=== PATIENT | male | born 1940 | race Caucasian/White ===

== ENCOUNTER 2016-12-31 18:00 | Inpatient (IN) | payer MEDICARE ==
[~2016-12-31] VITALS: Ht 180.3 cm; Wt 75.5 kg
--- OUTSIDE RECORDS SUMMARY | 2016-12-31 18:23 | XMS REPORT | Continuity of Care Document ---
Author Author [facility] Organization [facility] Address Unknown Phone Unavailable Allergies Medications Problems Procedures Results Encounters ACCT No. Visit Date/Time Discharge Status Pt. Type Provider Facility Loc./Unit Complaint [id number] 12/31/2016 10:15:00 ACT Outpatient KIKO LAWRENCE [facility]
[2016-12-31] MEDS ORDERED: TEMAZEPAM 15 MG CAPSULE PO PRN (18:30)
[2016-12-31] MEDS ORDERED: HALOPERIDOL 0.5 MG TABLET PO PRN (18:30)
[2016-12-31] MEDS ORDERED: LORAZEPAM 2 MG/ML INJECTION IM PRN (18:30)
[2016-12-31] MEDS ORDERED: LORAZEPAM 0.5 MG TABLET PO PRN (18:30)
[2016-12-31] MEDS ORDERED: PRN ORDERS MC (18:30)
[2016-12-31] MEDS ORDERED: HALOPERIDOL 5 MG/ML INJECTION IM PRN (18:30)
[2016-12-31] MEDS ORDERED: TEMA15CA PO (18:49)
[2016-12-31] MEDS ORDERED: FAMO20TA8 PO (18:49)
[2016-12-31 18:51] VITALS: BP 129/74; PULSE 102; RESP 24; TEMP 97.6; O2SAT 97
--- NOTE | 2016-12-31 19:19 | NUR ---
ETOH/Tobacco Use Patient's son reports no alcohol or tobacco use since the 1970s
[2016-12-31 19:23] VITALS: Ht 180.3 cm; Wt 75.5 kg
[2016-12-31] MEDS ORDERED: CLON0.5T23 PO (19:25)
[2016-12-31] MEDS ORDERED: MULT-933 PO (19:25)
--- NOTE | 2016-12-31 19:26 | NUR ---
Admission/Family Contacts Patient's son, Adonay, and , Sana are present during admission (1800 via [facility]. ambulance); report that patient had been "on a level plane" at home with his dementia then "fell off a guerda" which precipitated them taking him to the hospital [place]. Family stated patient had been very violent at the hospital hitting staff and had "started getting that way" at home but just mostly restless, agitated and forgetful. Patient is fatigued, reaching at unseen objects in the air, taking off his hospital gown, taking off blankets and pushing away staff during "hands-on" cares. He does not open his eyes or respond to staff - family states he is very [place]. Admission paperwork completed with family and questions answered
[2016-12-31] MEDS ORDERED: NAPR220C11 PO (19:27)
[2016-12-31] MEDS ORDERED: GLUC-251 (19:27)
--- NOTE | 2016-12-31 19:45 | NUR ---
Code Status According to pt is a DNR states it is in with the living will paperwork. No separate DNR paperwork on chart.
[2016-12-31] MEDS ORDERED: MEMA1CAP6 (19:55)
[2016-12-31 20:00] VITALS: PULSE 78
[2016-12-31] MEDS ORDERED: NAPROXEN 220 MG TABLET PO PRN (20:30)
[2016-12-31] MEDS ORDERED: MEMANTINE 10 MG TABLET PO SCH (21:00)
[2016-12-31] MEDS ORDERED: DONEPEZIL 10 MG TABLET PO SCH (21:00)
[2016-12-31] MEDS: CLONAZEPAM 0.5 MG TABLET PO SCH (21:07)
--- NOTE | 2016-12-31 21:07 | NUR ---
prn given Pt awake, labile, alert and oriented to person, pt very restless swinging and attempting to hit staff, pt attempting to crawl out of bed, pt sitting up in bed, grapping a hold of bed rails tightly. Pt repositioned in bed, pt given hs meds and Haldol 2mg crushed in jelly. Pt is in bed with staff at bedside, will monitor pt.
[2016-12-31 21:22] VITALS: BP 102/76; PULSE 89; RESP 18; TEMP 98.2; O2SAT 96
[2016-12-31] MEDS: LORAZEPAM 0.5 MG TABLET PO PRN (22:06)
--- NOTE | 2016-12-31 22:06 | NUR ---
prn given Pt remains very restless, pt agitated with cares, pt did void in urinal cloudy yellow urine, pt also incontinent, pt changed, pt very resistive to cares, pt ripped apart brief and tore up his gown. Pt swinging at staff, pt attempting to strike at staff with arms and legs. Pt states I want to stand and go pee on the wall. Pt resistive to staff's help, pt given Ativan 1mg po crushed in jelly. Pt is currently in bed remains restless with 2 bed rails up and bed alarm on. Staff remains at bedside, will monitor pt.
[2016-12-31] MEDS ORDERED: LORAZEPAM 1 MG TABLET PO ONE (23:15)
[2016-12-31] MEDS ORDERED: HALOPERIDOL 1 MG TABLET PO ONE (23:15)
--- NOTE | 2016-12-31 23:19 | NUR ---
prn given Pt more restless, attempting to throw himself out of bed, pt swinging, hitting at staff, pt spitting water at staff. Pt attempted to use the urinal, pt voided 30cc of yellow cloudy urine. Pt verbally aggressive with staff telling staff to get out he doesn't want a man in here. Pt remains very restless, pt having hallucination reaching out for objects that are not there. Dr Spaulding called and updated order to repeat Ativan 1mg and Haldol 2mg po if able to may given Ativan/Haldol per IM. Pt did take ativan/haldol crushed in jelly. Pt remains restless and staff remains at bedside for safety.
[2017-01-01] MEDS ORDERED: HALOPERIDOL 0.5 MG TABLET PO PRN (00:30)
[2017-01-01] MEDS ORDERED: HALOPERIDOL 5 MG/ML INJECTION IM PRN (00:30)
--- NOTE | 2017-01-01 00:45 | NUR ---
prn update Pt remains restless at times, pt starting to fall asleep, pt is in bed with staff at bedside with 2 bed rails up and bed alarm on.
--- NOTE | 2017-01-01 02:25 | NUR ---
Chart Check 24 hour chart check completed
--- NOTE | 2017-01-01 06:38 | NUR ---
shift summary Pt slept 8.25 hours on folding machine setter, pt is alert and oriented x1, pt is up with assist x2, pt has been uncooperative, pt is restless, staff at bedside for extra care, pt very restless in the bed, pt swinging and kicking and spitting at staff. Pt received Ativan 1mg at 2206, Haldol 2mg po 21:07, pt still very restless, attempting to crawl out of bed, pt swinging and kicking at staff, Dr Spaulding called updated ordered Ativan 1mg and Haldol 2mg po to be repeated, given crushed at 23:19. Pt restless, pt fell asleep at 0030, staff at bedside for safety. Pt having hallucinations picking and pulling at stuff in the air, pt is in bed with 2 bed rails up and bed alarm on.
--- NOTE | 2017-01-01 07:12 | NUR ---
patient status Pt awake, incontinent, pt threatening staff stating that he will charge them $10,000 and teri staff, pt grabbing and hitting staff, patient got ahold of chief science officer staff and dug his fingernails into pt left arm, no skin breakage, chief science officer washed her arm with hipacleanse offered chief science officer to go to er chief science officer refused at this time. Pt remains very restless in bed, staff at bedside for extra cares, pt making racial slurs called staff a black bitch. pt is in bed with 2 bed rails up and bed alarm on.
[2017-01-01 07:53] VITALS: PULSE 97; RESP 16; O2SAT 97
[2017-01-01] MEDS ORDERED: MEMANTINE 5 MG TABLET PO SCH (09:00)
[2017-01-01 09:40] VITALS: BP 126/74; PULSE 85; RESP 16; TEMP 97.4; O2SAT 96
[2017-01-01] MEDS: FAMOTIDINE 20 MG TABLET PO SCH (10:09)
[2017-01-01] MEDS: MULTIVITAMIN PLAIN TABLET PO SCH (10:10)
--- NOTE | 2017-01-01 10:14 | HPPDOC ---
NEREIDA MAGAÑA [employer] WIP[employer] REPAIRER 01/01/17 0919: HPI - Adult Date DATE: 01/01/17 TIME: 09:19 General Chief Complaint: aggression History of Present Illness Duy is a 75 year old male who was admitted at the [facility] since 12/29 for some acute aggression he was experiencing, was hitting, kicking, spitting at . He was ultimately sent to [facility] unit for some more intensive akhil-psych hospitalized care. Notes were reviewed from [facility] and it appears he was found to be in rate controlled afib on . They had evaluated anticoagulation needs and decided patient was not a good candidate. Recommended outpatient echo. Troponin done at [facility] was negative. TSH from 12/29 was 0.890. UA done at [facility] did not show acute evidence for infection. Patient is not on any cardiac medications at time of this initial [facility] hospitalist evaluation. Remaining medial history is difficult to fully obtain as patient is not able to report history due to clinical condition. He is able to deny feeling any pain. His speech is soft and difficult to fully understand, he mumbles. Past Medical History Past Medical History Patient's Medical History: (1) New onset atrial fibrillation (2) Dementia Surgical History Patient's Surgical History: cataract excision Current Medications Home Meds Reported Medications Memantine HCl/Donepezil HCl (Namzaric Titration Pack) 1 Each Cap24.dspk 12/31/16 Naproxen Sodium (Aleve) 220 Mg Capsule, 220 MG PO BIDWM Y for PRN ORDERS, CAP 12/31/16 Glucosamine/D3/Boswellia Alisson (Osteo Bi-Flex Tablet) 1 Each Tablet 12/31/16 Multivitamin (Multi-Day Vitamins) 1 Each Tablet, 1 TAB PO DAILY, #30 TAB 12/31/16 Clonazepam (Clonazepam) 0.5 Mg Tab.rapdis, 1 TAB PO HS, TAB 12/31/16 Temazepam (Temazepam) 15 Mg Capsule, 15 MG PO HS, CAP Take 1 capsule, by mouth, 1 time a day (at BEDTIME). 12/31/16 Famotidine (Famotidine) 20 Mg Tablet, 1 TAB PO DAILY, TAB 12/31/16 Allergies: Coded Allergies: No Known Allergies (Unverified , 12/31/16) Family History Family History: unable to obtain Social History Marital Status: Advance Directives: Yes DPOA for Healthcare Only Social History Comments unable to obtain SH fully secondary to dementia Review of Systems Unable to Obtain ROS Due to: dementia Psychiatric Psychiatric: emotional instability, irritability, memory impairment All Other Systems All Other Systems: Reviewed (remainder of 10-point ROS Neg.) Physical Exam General General Nourishment: well nourished, well developed Vital Signs Vital Signs Date Time Temp Pulse Resp B/P Pulse Ox O2 Delivery O2 Flow Rate FiO2 12/31/16 21:22 98.2 89 18 102/76 96 Room Air Height (Feet): 5 Height (Inches): 11.00 Eyes Brief: FOUND: PERRL, NOT FOUND: scleral icterus ENMT Brief: FOUND: hearing intact, mucosa moist Neck Brief: FOUND: midline Respiratory Brief: FOUND: clear all cowan, equal bilaterally Cardiovascular (brief) Cardiac Brief: NOT FOUND: peripheral edema Comments irreg irreg c/w atrial fibrillation. Rate 80s. Abdomen (brief) Abdominal Brief: FOUND: BS normo active x4, soft Integumentary (brief) Integumentary Brief: FOUND: dry, pink, warm Neurologic (brief) Comments unable to assess secondary to mental status Neurologic RN Documented GCS Eye Opening: Verbal: Motor: Total: Psychiatric (brief) FOUND: alert, NOT FOUND: normal affect (confused), oriented Laboratory Laboratory Tests Test 01/01/17 08:54 Sepsis Diagnostic Criteria Sepsis Confirmed/Suspected Infection: No Assessment & Plan Problems: (1) Behavior disturbance Status: Acute (2) Dementia (3) New onset atrial fibrillation Status: Acute Plan/Intensity of Service 01/01 New onset afib-Chads score = 1 based on history obtained in documents sent from [facility]. Hold on anticoagulation at this time. Can do echo as outpatient. Rate controlled. Dr. Carmona advised. Lipid panel and Hgb A1c pending from admit. Psych treatment per Dr Spaulding Code Status Full Code, unverified Hospital Course Summary Disclaimer The hospital course summary below is not to be considered part of the above Progress Note. LUDIN CARMONA MD 01/01/17 7513: Past Medical History Current Medications Home Meds Reported Medications Memantine HCl/Donepezil HCl (Namzaric Titration Pack) 1 Each Cap24.dspk 12/31/16 Naproxen Sodium (Aleve) 220 Mg Capsule, 220 MG PO BIDWM Y for PRN ORDERS, CAP 12/31/16 Glucosamine/D3/Boswellia Alisson (Osteo Bi-Flex Tablet) 1 Each Tablet 12/31/16 Multivitamin (Multi-Day Vitamins) 1 Each Tablet, 1 TAB PO DAILY, #30 TAB 12/31/16 Clonazepam (Clonazepam) 0.5 Mg Tab.rapdis, 1 TAB PO HS, TAB 12/31/16 Temazepam (Temazepam) 15 Mg Capsule, 15 MG PO HS, CAP Take 1 capsule, by mouth, 1 time a day (at BEDTIME). 12/31/16 Famotidine (Famotidine) 20 Mg Tablet, 1 TAB PO DAILY, TAB 12/31/16 Allergies: Coded Allergies: No Known Allergies (Unverified , 12/31/16) Assessment & Plan Assessment I have independently evaluated and examined this patient. I reviewed the chart, the patient's history, and the [employer] WIP[employer] REPAIRER's documented findings as above. We discussed and formulated the assessment and plan as above with additions as below: Patient sleeping when I visited him, he opened his eyes briefly but did not remain awake. No additional history could be obtained. Respirations were nonlabored in cardiac exam slightly irregular with borderline tachycardia. The patient withdrew all 4 extremities to stimulation and facial structures were grossly symmetric. EKG reviewed by myself demonstrating atrial fibrillation with moderate ventricular response, diffuse T-wave flattening and relatively low voltage. No evidence of acute pathology; cannot exclude past septal AR. Will review transfer records in more detail in upcoming days and hopefully get supplemental history from patient's when she is available. Will attempt a more complete neurological evaluation when patient awake and able to cooperate with testing. NEREIDA MAGAÑA APRN Jan 01, 2017 09:19 LUDIN CARMONA MD Jan 01, 2017 19:06
--- NOTE | 2017-01-01 15:37 | NUR ---
CM JUAQUIN VISITED SPOKE WITH PT SPOUSE CON. CM EXPLAINED ROLE AND PROVIDED CONTACT INFORMATION. SPOUSE STATES THAT PT WILL NOT RETURN HOME AND SHE DID PROVIDE PT WITH FACILITIES TO CONTACT WHEN APPROPRIATE. CON IS AWARE TO CONTACT CM IF NEEDS ARISE.
[2017-01-01] MEDS ORDERED: OLANZAPINE 2.5 MG TABLET PO ONE (16:00)
--- NOTE | 2017-01-01 18:19 | NUR ---
SHIFT SUMMARY Patient has been compliant with his medications today. He slept 1.5 hr this shift. No complains of pain, Heart rate was irregular, Order received by LOVELY erwin for an EKG, hearth rhythm was Afib, LOVELY Velasco was aware. Pt needed assistance of 1 with cares, he was able to brush his teeth by himself. He needed cueing, Unsteady gait, he leans forward at times when he ambulates. During ambulation gait belt was used. In the morning patient came out for breakfast and and lunch, he is able to feed himself. Then wondered around the unit with staff next to him, he was restless, agitated and anxious, did not like having the gait belt on. In the evening he got out of bed and began to walk down the [place] way with staff, he was having visual hallucinations, picking things that were not there from the floor. Throwing something away. Removing something from his hands. Pt also would assist him self to the floor several times in the [address] way, gait belt was on. Staff provided constant visual observation while he was out of his room throughout the day per unit policy. One time order was received for zyprexa 2.5 mg PO and it was given at 1600, around 45 minutes later he was more calmed and able to redirect. Family was updated on Pt status. Pt is currently resting on his room, bed alarm is on, bedside rails are up x 2, bed is at its lowest position. Will continue to monitor for any needs or concerns. t
--- NOTE | 2017-01-01 19:45 | NUR ---
Pt OOB without assistance, bed alarms notified staff of bed exit. Pt attempting to poultry picker things off of the floor that are not there. Pt is noted to be having visual hallucinations and picking at bed sheets, attempting to pull off what he sees. Pt is unable to describe what he is seeing and it is difficult to understand his verbalizations. Attempted to re-direct patient with verbal cues, unsuccessfully. Pt is dressed, toileted and taken to day room where staff gives patient a snack and his HS pills early due to increasing agitation. Pt stays in day room for approximately 20 minutes before wanting to go back to his room. Pt assisted back to room with SBA x1 and gait belt. Upon getting to his room, pt becomes agitated and begins to push at female staff to move them away from him. Pt not able to be redirected at this time. Pt refuses toileting. Pt taken back to day room with SBA x1 and gait belt. Pt placed in recliner and snack given with assistance from STOCK BUYER. Pt able to be directed by male staff in day room and stays seated in the recliner. After 35 minutes, pt requests to go back to room. Attempted to toilet prior to being placed in bed. Pt ambulated to shower and is attempting to poultry picker something from the floor, nothing was on the floor at that time. Pt redirected to bed, shoes removed and placed into the closet. Pt given blankets and bed alarms set. Approximately 20 minutes later, a bed bath was completed by STOCK BUYER and patient compliant with cares.
[2017-01-01] MEDS: CLONAZEPAM 0.5 MG TABLET PO SCH (19:51)
[2017-01-01] MEDS: MEMANTINE PO SCH (19:52)
[2017-01-01] MEDS: DONEPEZIL PO SCH (19:52)
--- NOTE | 2017-01-01 20:49 | GENHPPDOC ---
[facility] 01/01/17 Start Time: 15:50 Stop Time: 16:40 >50% of this visit spent in counseling/coordination care. Chief Complaint: Patient unable to verbalize a chief complaint Increased behavioral disturbance, agitation per family History of Present Illness Patient is a 76-year-old , retired male who was admitted to [facility] on 12/31/16 due to increasing agitation/aggression. Patient lives at home with his . He has a history of dementia. Prior to admission, he wandered away from the home at night and was found in a ditch. His family feels they are unable to care for him at home. They reported that he has been having visual hallucinations and increased aggression with his . He has had multiple falls over the past 1-2 weeks. He has poor hygiene and has not been eating well, with 7 lb. weight loss since 08/2016. His family reports initial and middle insomnia. He has had a limited response to Seroquel. Past medical problems: chronic gait instability with recent falls, recent-onset atrial fibrillation (rate-controlled) Patients DPOA is his , Sana Hernandez, . EKG upon admission 01/01/17: 87 bpm, atrial fibrillation, QTc 420ms Psychosis: visual Dementia: memory impairment, poor executive function. Past Medical History Unable to Obtain Due to: Dementia Past Medical History Patient's Medical History: (1) New onset atrial fibrillation (2) Dementia Surgical History Patient's Surgical History: cataract excision Current Medications Home Meds Reported Medications Memantine HCl/Donepezil HCl (Namzaric Titration Pack) 1 Each Cap24.dspk 12/31/16 Naproxen Sodium (Aleve) 220 Mg Capsule, 220 MG PO BIDWM Y for PRN ORDERS, CAP 12/31/16 Glucosamine/D3/Boswellia Alisson (Osteo Bi-Flex Tablet) 1 Each Tablet 12/31/16 Multivitamin (Multi-Day Vitamins) 1 Each Tablet, 1 TAB PO DAILY, #30 TAB 12/31/16 Clonazepam (Clonazepam) 0.5 Mg Tab.rapdis, 1 TAB PO HS, TAB 12/31/16 Temazepam (Temazepam) 15 Mg Capsule, 15 MG PO HS, CAP Take 1 capsule, by mouth, 1 time a day (at BEDTIME). 12/31/16 Famotidine (Famotidine) 20 Mg Tablet, 1 TAB PO DAILY, TAB 12/31/16 Allergies: Coded Allergies: No Known Allergies (Unverified , 12/31/16) Family History Family History: unable to obtain Vaccines No Social History Marital Status: Housing: house Household Members: spouse Current Occupational Status: retired Advance Directives: Yes DPOA for Healthcare Only Review of Systems Unable to Obtain ROS Due to: clinical condition, dementia Psychiatric Psychiatric: emotional instability, hallucinations, memory impairment Generations Exam Vitals Vital Signs Date Time Temp Pulse Resp B/P Pulse Ox O2 Delivery O2 Flow Rate FiO2 01/01/17 09:40 97.4 85 16 126/74 96 Room Air Physical examination performed by the hospitalist. Height (Feet): 5 Height (Inches): 11.00 Mental Status Exam Muscle Strength/Tone: Normal Dressing: Casual Grooming: Poor Attitude: Uncooperative, Combative Motor Activity: Agitation, Restless Eye Contact: Poor Volume: Soft Rhythm: Mumbled, Other (Nonsensical) Sensory: Alert Orientation: Disoriented to time, Disoriented to place, Disoriented to situation, Oriented to person Mood: Other (Unable to obtain from patient) Affect: Labile Rate of Thoughts: Delayed Thought Organization: Disorganized, Confused Associations: Illogical Abstract Reasoning: Impaired, concrete Computation: Poor Computation Thought Content: Other (Poverty of thought) Perception/Psychotic: Psychotic Current Hallucinations: Visual (reported by family) Attention Span/Concentration: Short Span Language: Naming Impaired Fund of Knowledge: Poor fund of knowledge Memory: Poor-immediate, Poor-recent, Poor-remote Suicidal Ideation: None Homicidal Ideation: Other (has threatened hospital staff with butter , no continuous well-formed HI) Insight: Impaired Judgment: Impaired Impulse Control: Poor Laboratory Tests Test 01/01/17 08:54 Hemoglobin A1c 5.4% Triglycerides Level Pending Cholesterol Level Pending LDL Cholesterol, Calculated Pending VLDL Cholesterol Pending HDL Cholesterol Direct Pending Cholesterol/HDL Ratio Pending Vitamin B12 Level Pending Folate Pending Assessment and Plan (1) Major neurocognitive disorder Assessment: with behavioral disturbance History of Alzheimer's dementia, r/o Lewy Body dementia (2) New onset atrial fibrillation Assessment: Rate-controlled, outpatient echocardiogram recommended Evaluate and stabilize. Maintain safety precautions. Review labwork, order additional as needed. Family requesting placement once stabilized. Would like to obtain head CT if patient stabilizes to the point he is able to cooperate. Will schedule Zyprexa 5mg PO q HS; monitor patient's mood, behavior and response to treatment. ARIANA DEY MD Jan 01, 2017 15:50
[2017-01-01 21:00] VITALS: BP 123/72; PULSE 100; RESP 18; TEMP 97.9; O2SAT 98
[2017-01-01] MEDS ORDERED: OLANZAPINE ZYDIS PO SCH (21:00)
--- NOTE | 2017-01-01 23:53 | NUR ---
24 hour chart check completed
--- NOTE | 2017-01-02 02:02 | NUR ---
sleeping status Pt is noted to be pulling clothing and briefs off until he is nude. Charge nurse advises that as long as he is in bed, to leave him be. Pt door partially closed for privacy.
[2017-01-02] MEDS: OLANZAPINE 2.5 MG TABLET PO PRN ×2 (02:07→15:34)
--- NOTE | 2017-01-02 02:45 | NUR ---
PRN response Pt noted to continue picking at skin, attempting to pull off a mole from skin. Does not redirect with verbal cues. Pt still not able to be understood due to his mumbling when he speaks. PRN Zyprexa was given for increasing agitation and attempting to pinch staff while they were providing cares. Pt able to take med whole with a bite of applesauce. Pt rests quietly for 2 hours after PRN med given.
--- NOTE | 2017-01-02 06:04 | NUR ---
Shift summary Pt able to rest intermittently through the night. Multiple episodes of incontinence with debbie care and skin care provided. Pt refused to keep clothes and briefs on. Complete linen change done after incontinence episode. Pt had one episode of aggression towards staff when he attempted to hit staff during debbie care. Pt given PRN that was effective and he rested quietly after PRN administration. Pt continues to have auditory and visual hallucinations, but it is unclear as to what they are due to patient speech only being mumbles. Pt also continues to pick at skin and place objects in his mouth that are not in his hands. Pt throwing linen and pillows to floor repeatedly and does not leave them on the bed, shakes bed rails in attempts to lower them but remains in the bed at this time. Addendum: 01/02/17 at 0625 by DILSHAD YOUSIF RN Pt sleeps approximately 5 hours through the shift without incident.
[2017-01-02] MEDS: MULTIVITAMIN PLAIN TABLET PO SCH (08:56)
[2017-01-02] MEDS: LORAZEPAM 0.5 MG TABLET PO PRN ×2 (08:56→22:51)
[2017-01-02] MEDS: FAMOTIDINE 20 MG TABLET PO SCH (08:56)
--- NOTE | 2017-01-02 08:56 | NUR ---
Pt Status and PRN Med Pt. given bed bath and was cooperative with care but very impulsive. Oriented only to person and needs frequent prompts while eating but able to feed self, does not utilize utensils correctly until prompted. Pt very impulsive and walked in [place] to office and back six times two assist. Wanting to leave and go home and not directable. Medicated with Ativan 1 mg po.
[2017-01-02 09:26] VITALS: BP 133/77; PULSE 103; RESP 18; TEMP 96.7; O2SAT 93
--- NOTE | 2017-01-02 10:30 | NUR ---
Slums Evaluation Pt scored 0 as he is unable to answer questions.
--- NOTE | 2017-01-02 11:45 | NUR ---
PRN response Pt sleeping in recliner and has occasional picking in the air.
--- NOTE | 2017-01-02 15:34 | NUR ---
Prn Med Pt given Zyprexa 2.5 mg po for agitation. When pt take to bathroom pt bent over and was lifting staff member's leg up and pulling at shoe. Not able to be redirected. In w/c and continued to reach down to floor and picks in air and on w/c.
[2017-01-02 16:13] VITALS: BP 129/71; PULSE 93; RESP 18; TEMP 97.8; O2SAT 96
--- NOTE | 2017-01-02 17:00 | NUR ---
PRN Med response Sleeping in chair and no respiratory difficulty noted. Will awake briefly to tactile stimuli but then back to sleep easily.
--- NOTE | 2017-01-02 18:04 | NUR ---
Shift Summary PT did cooperate with bathing but was passive and need much prompting to follow sequencing of steps but did not follow prompts. Speech mumbled and pt is confused except to name. Intermittent agitation, pacing with two assist for balance and safety and gait belt in place as pt leans forward and on occasion with stand up in balance stance. and son here today and verbalize pt needs custodial care placement at dismissal.
[2017-01-02] MEDS: CLONAZEPAM 0.5 MG TABLET PO SCH (20:21)
[2017-01-02] MEDS: MEMANTINE PO SCH (20:29)
[2017-01-02] MEDS: DONEPEZIL PO SCH (20:29)
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
[2017-01-02 22:22] VITALS: BP 113/80; PULSE 85; RESP 20; TEMP 97.8; O2SAT 98
[2017-01-02] MEDS: LORAZEPAM 2 MG/ML INJECTION IM PRN (23:07)
--- NOTE | 2017-01-02 23:13 | NUR ---
PRN: Patient has been agitated since being put to bed. Grabbing clothing and finger of nurse and not letting go. Verbal aggression as well, calling this RN a bitch. Restless and got out of bed. Falling sideways when this RN caught him. Patient would not take ativan po with jelly. He spit it out. This RN gave ativan 1 mg IM Left pectoral with assistance to have him hold still. Patient tolerated injection well and is now laying in bed with bed rails up times 2 and bed alarm on. Addendum: 01/03/17 at 1033 by LUDA CARRERA RN IM was given in the Right Deltoid.
--- NOTE | 2017-01-03 00:15 | NUR ---
PRN F/U: Patient resting after IM injection of ativan. Will continue to monitor.
[2017-01-03 00:39] LABS: LDL CHOLESTEROL,CALCULATED 76.6 (66-159); RISK FACTOR 3.3 RATIO (0-5.0); VLDL CHOLESTEROL 14.4 MG/DL (0-28)
--- NOTE | 2017-01-03 02:35 | NUR ---
Status: Patient was in dayroom when I arrived on shift. Patient was sleeping and when he was woke to take his evening medications, he grabbed my sweatshirt and would not let go. He was agitated and hollering. Patient taken to room in recliner and placed in bed. Patient put in night gown. Patient was able to rest a short time, before he started getting restless and pulling his covers off. Patient got out of bed and when I got to room, patient was up next to bed and was leaning to the right, about to fall. This RN was able to catch him. With other assistance, patient was placed back in bed and continues to be agitated. He grabbed my fingers and wouldn't let go, was well as verbal aggression, calling this RN a bitch. Patient was offered PO ativan and he refused to take it, spitting it out. Patient was given IM injection of Ativan in left arm and tolerated well. Patient resting since IM Ativan given earlier in shift. Nothing additional to note at this time. Patient in bed. Bed rails up X2 and bed alarm on.
--- NOTE | 2017-01-03 04:46 | NUR ---
Chart Check 24 hour chart check completed
--- NOTE | 2017-01-03 06:09 | NUR ---
Summary: Patient agitated throughout this shift while awake. He did receive Ativan IM for safety of himself and others. Patient got out of bed and this RN caught him right as he was falling sideways. Patient was also grabbing, hitting, and verbally abusive to staff. Patient was given Ativan 1mg IM at 2307 after refusing po ativan. Patient rested the remainder of the shift with bed rails up X2 and alarm on bed. Patient continues resting, will continue to monitor.
[2017-01-03 08:00] VITALS: BP 125/78; PULSE 90; RESP 20; TEMP 97.6; O2SAT 98
[2017-01-03] MEDS: MULTIVITAMIN PLAIN TABLET PO SCH ×2 (09:00→12:56)
[2017-01-03] MEDS: FAMOTIDINE 20 MG TABLET PO SCH ×2 (09:00→13:02)
[2017-01-03] MEDS ORDERED: RIVASTIGMINE 1.5 MG CAPSULE PO SCH (09:00)
[2017-01-03] MEDS: RIVASTIGMINE 4.6 MG/24 HR PATCH TD SCH (09:52)
--- NOTE | 2017-01-03 10:18 | NUR ---
GROOVER OPERATOR--PSH/ADVANCE DIRECTIVES [facility] made phone call to pt's , Sana Hernandez ([phone]) in order to gather information for psychosocial history (PSH). Pt's advanced dementia inhibits him from being able to answer any questions. is pt's DPOA-HC and he has a Living Will. She wants him to be a DNR and gave permission to sign her name on DNR form. Pt. was born in [place]. He has two sons (Adonay--[place]; Farzad--[place]). Pt. has high school diploma and was in the [employer]. 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 Pt. did have a problem abusing alcohol but quit drinking in 1971. He has not smoked for many years. He has never been a spiritual person. Pt. has been living at home with his in [place]. His son lives four houses away. The does not feel she can safely manage pt. at home. She is meeting this afternoon with an litigation attorney who will help her file for medicaid. She has the names of nursing homes in the area that she is interested in for placement. This SW reviewed proposed [place] plan with pt. added some information regarding his current level of functioning. She gave permission to sign her name on the form. She said her son's days off are Saturday and and she may not be able to visit until next week due to the distance. Addendum: 01/03/17 at 1045 by TONEY CHEEK Amended: Links added.
--- NOTE | 2017-01-03 10:35 | PNPDOC ---
Subjective Date DATE: 01/03/17 TIME: 10:15 Subjective Duy is seen this morning in follow up for aggressive behaviors. Staff reports that he has been aggressive toward staff all night. Having, hitting, and verbally abusive. He continues to be impulsive and attempts to get out of bed quickly and has had a near miss fall. Appears to BP has been well controlled 113/80. Objective Vital Signs Vital signs Vital Signs Date Time Temp Pulse Resp B/P Pulse Ox O2 Delivery O2 Flow Rate FiO2 01/02/17 22:22 97.8 85 20 113/80 98 Room Air Height (Feet): 5 Height (Inches): 11.00 Weight (Kilograms): 77.200 General General Appearance: Confused, Uncooperative, No Acute Distress Eyes (Brief) Eyes: FOUND: EOMI ENMT (Brief) ENMT: FOUND: mucosa moist, normal dentition, NOT FOUND: pharnyx erythema Neck (Brief) Neck: FOUND: midline, NOT FOUND: adenopathy, carotid bruits, tracheal deviation Respiratory (Brief) Respiratory: FOUND: clear all cowan, equal bilaterally, NOT FOUND: wheezes Cardiovascular (Brief) Cardiac: FOUND: regular rate, regular rhythm, NOT FOUND: murmur, pedal edema Capillary Refill: <2 sec Abdomen (Brief) Abdominal: FOUND: BS normo active x4, soft, NOT FOUND: distended, tender Lymphatic (Brief) Lymphatic: NOT FOUND: adenopathy Musculoskeletal (Brief) Musculoskeletal: NOT FOUND: tenderness Integumentary (Brief) Integumentary: FOUND: dry, pink, warm Neurologic (Brief) Neurological: FOUND: cranial 2-12 intact Psychiatric (Brief) Psychiatric: FOUND: attentive, normal affect Sepsis Diagnostic Criteria Sepsis Confirmed/Suspected Infection: No Assessment & Plan Problems: (1) Behavior disturbance Status: Acute (2) Dementia (3) New onset atrial fibrillation Status: Acute Plan/Intensity of Service 01/03/17 Dr Spaulding continues to work on behavior treatment. Goal is to keep both patient and staff safe Lipid panel reviewed, Hgb A1c on admission 5.4 Have asked nursing staff to call PCP office Dr Dolan from [place], [place] to obtain further PMH Otherwise is medically stable Code Status Full Code, unverified Hospital Course Summary Disclaimer The hospital course summary below is not to be considered part of the above Progress Note. Hospital Course Summary 01/03/17 Dr Spaulding continues to work on behavior treatment. Goal is to keep both patient and staff safe Lipid panel reviewed, Hgb A1c on admission 5.4 Have asked nursing staff to call PCP office Dr Dolan from [place], [place] to obtain further PMH Otherwise is medically stable WILLIE PIERRE APRN Jan 03, 2017 10:25
--- NOTE | 2017-01-03 14:22 | NUR ---
STATUS Pt woke up late around 1300, he was incontinent, he only took bites of his lunch, and ate an ice cream. pt did not wanted this RN to help him get dressed in the morning, he refused his morning medications, and said he wasn't taking anything until he talks to the doctor. Patient's gait is unsteady. He tries to have conversation with staff but his conversation does not make sense at times. Pt was having visual hallucinations, he was wrapping something something that was not there between his fingers. Pt is currently coloring in the dining room. Staff is near by, will continue to monitor for any needs or concerns.
[2017-01-03 16:27] VITALS: BP 122/88; PULSE 100; RESP 16; TEMP 96.9; O2SAT 98
[2017-01-03] MEDS: LORAZEPAM 0.5 MG TABLET PO PRN ×2 (17:49→21:27)
--- NOTE | 2017-01-03 18:26 | NUR ---
SHIFT SUMMARY/PRN Pt is AO x 1. Patient woke up late today around 1300, he only took bites of his lunch and had an ice cream, he ate 50 % of his dinner. Pt did well after he woke up he was trying to make conversations with other patients and staff, he sat down in the dining room and did some coloring for a while, he spoke with his son on the phone, Pt walked down the [address] way several times this shift with staff, Gait is unsteady. Patient has been having visual hallucinations, he has been wrapping unseen things around his hands, picking at the air, picking unseen things from the floor. In the evening Pt started getting restless, unable to stay sitting down, he tries to get up with out staff assistance, pacing down the [address] way,refusing to use the gait belt, exit seeking, unable to redirect. PRN Ativan 1mg po was given at 1750. Pt has been constant visual observation while he is awake and out of his room, Pt has not been physically aggressive. Pt is currently in the day room wondering around, and continues to be restless, taking his shoes off, exit seeking, unsteady. Staff is next to him. Will continue to monitor.
--- NOTE | 2017-01-03 19:17 | NUR ---
PRN follow up Pt continues to be restless, wondering around the day room, agitated, he took his shirt off, took his shoes off, he continues to pick at the air, picking up unseen things from the floor, Pt has been difficult to redirect. He is currently in the group room, PRN medication was not effective. staff is near by, will continue to monitor.
--- NOTE | 2017-01-03 20:00 | NUR ---
STATUS PT IS IN THE DAY ROOM SEATED IN A CHAIR FIDGETING WITH HIS SHOES AND SHIRT. PT TAKES HIS SHIRT OFF AND SHOES OFF IN DIFFERENT PLACES IN THE DAY ROOM. PT IS NOT EASILY REDIRECTED. PT REQUIRES 1:1 ATTENTION AT THIS TIME. PT IS UP WALKING IN HALLWAY WITH ASSISTANCE X2 PT IS UNSTABLE ON HIS FEET LEANING FORWARD AND WALKING VERY FAST. SETTLES QUICKLY IN BED AFTER PM CARES ARE GIVEN. BEDALARM IS ON. PT REFUSES PO MEDICATIONS SPITTING THEM AT THIS RN.
[2017-01-03 20:07] VITALS: BP 117/79; PULSE 98; RESP 16; TEMP 97.7; O2SAT 96
[2017-01-03] MEDS: DONEPEZIL PO SCH (20:21)
[2017-01-03] MEDS: MEMANTINE PO SCH (20:21)
[2017-01-03] MEDS: CLONAZEPAM 0.5 MG TABLET PO SCH (20:21)
--- NOTE | 2017-01-03 21:12 | GENPN ---
Generations Subjective Date DATE: 01/03/17 TIME: 15:03 Subjective/Severity of Illness Medications Current Medications Medications (Trade) Dose Ordered Sig/Gomez Start Time Stop Time Status Last Admin Dose Admin Miscellaneous Medication (May use PRN orders) 1 PRN PRN 12/31/16 18:30 Haloperidol (Haldol) 0.5 mg Q6H PRN 12/31/16 18:30 12/31/16 19:51 DC Lorazepam (Ativan) 0.5 mg Q6H PRN 12/31/16 18:30 12/31/16 19:51 DC Lorazepam (Ativan) 0.5 mg Q6H PRN 12/31/16 18:30 12/31/16 19:51 DC Haloperidol Lactate (Haldol 5 Mg/ml Inj) 0.5 mg Q6H PRN 12/31/16 18:30 12/31/16 19:51 DC Donepezil HCl (Aricept) 10 mg HS 12/31/16 21:00 01/01/17 08:57 DC 12/31/16 21:07 10 MG Famotidine (Pepcid) 20 mg DAILY 01/01/17 09:00 01/02/17 08:56 20 MG Memantine (Namenda) 10 mg HS 12/31/16 21:00 01/01/17 08:57 DC 12/31/16 21:07 10 MG Temazepam (Restoril) 15 mg HS PRN 12/31/16 18:30 01/01/17 20:50 DC Memantine (Namenda) 5 mg DAILY 01/01/17 09:00 01/01/17 09:00 DC Haloperidol (Haldol) 2 mg Q6H PRN 01/01/17 00:30 01/01/17 17:29 DC 12/31/16 21:07 2 MG Haloperidol Lactate (Haldol 5 Mg/ml Inj) 2 mg Q6H PRN 01/01/17 00:30 01/02/17 17:17 DC Lorazepam (Ativan) 1 mg Q6H PRN 01/01/17 00:30 01/02/17 22:51 1 MG Lorazepam (Ativan) 1 mg Q6H PRN 01/01/17 00:30 01/02/17 23:07 1 MG Clonazepam (Klonopin) 0.5 mg HS 12/31/16 21:00 01/02/17 20:21 0.5 MG Naproxen Sodium (ALEVE 220 mg) 220 mg BIDWM PRN 12/31/16 20:30 Multivitamins Therapeutic (Theragran) 1 tab DAILY 01/01/17 09:00 01/02/17 08:56 1 TAB Memantine (Namenda) 10 mg BID 01/20/17 21:00 Memantine (Namenda) 5 mg BID 01/20/17 21:00 Donepezil HCl (Aricept) 10 mg HS 01/20/17 21:00 01/20/17 21:00 DC Olanzapine (Zyprexa Zydis) 5 mg HS 01/01/17 21:00 01/02/17 17:17 DC 01/01/17 19:52 5 MG Olanzapine (ZYPREXA 2.5 mg) 2.5 mg Q6HR PRN 01/01/17 17:30 01/02/17 17:17 DC 01/02/17 15:34 2.5 MG Donepezil HCl (Aricept) 5 mg HS 01/20/17 21:00 Rivastigmine Tartrate (Exelon) 1.5 mg BID 01/03/17 09:00 01/03/17 09:00 DC Rivastigmine Tartrate (Exelon Patch) 4.6 mg DAILY 01/03/17 09:00 01/03/17 09:52 4.6 MG Rivastigmine Tartrate (Exelon Patch Removal) 1 removal DAILY 01/04/17 09:00 Subjective Patient seen and chart reviewed. Patient was restless overnight and given PRN Ativan on multiple occasions. Did then sleep until 1300 today. Exelon patch was started this AM as patient has been refusing PO, patient seems significantly steadier on his feet. Patient was calm at time of interview after speaking with his son on the phone. He continues to be disorganized/confused. Staff have reported that he seems to have VH (he wraps his fingers around something) but it does not appear that this is particularly disturbing for him. I spoke with son about possible medication options - family would prefer to avoid antipsychotics (reportedly responded poorly to Seroquel) and clozaril if possible. He felt that Depakote may be a good option to try next to reduce agitation. SW will continue to work with family in regards to expectations and prognosis. VSS. Patient not able to participate in SLUMS. Start Time: 15:10 Stop Time: 15:30 Care >50% of this visit spent in counseling/coordination care. Generations Exam Vitals Vital Signs Date Time Temp Pulse Resp B/P Pulse Ox O2 Delivery O2 Flow Rate FiO2 01/03/17 08:00 97.6 90 20 125/78 98 Room Air Physical examination performed by the hospitalist. Height (Feet): 5 Height (Inches): 11.00 Mental Status Exam Muscle Strength/Tone: Weak (improved from previous) Dressing: Casual Grooming: Poor Attitude: Uncooperative Motor Activity: Restless (at times) Eye Contact: Poor Speech: Slowed Volume: Soft Rhythm: Mumbled Sensory: Alert Orientation: Disoriented to time, Disoriented to place, Disoriented to situation, Oriented to person Mood: Neutral Affect: Labile Rate of Thoughts: Delayed Thought Organization: Disorganized, Confused Associations: Illogical Abstract Reasoning: Impaired, concrete Computation: Poor Computation Thought Content: Other (Out of context to situation) Perception/Psychotic: Psychotic Current Hallucinations: Visual (suspectd, not disturbing in nature from observations) Attention Span/Concentration: Inattentive Language: Naming Impaired Fund of Knowledge: Poor fund of knowledge Memory: Poor-immediate, Poor-recent, Poor-remote Suicidal Ideation: None Homicidal Ideation: None Insight: Impaired Judgment: Impaired Impulse Control: Poor Assessment and Plan (1) Major neurocognitive disorder Assessment: with behavioral disturbance History of Alzheimer's dementia, Lewy Body dementia suspected Plan: 01/02/17: Plan to cross-taper Aricept with Rivastigmine, which has been shown to be more helpful with behavioral disturbance in LBD. Will discontinue olanzapine.. Consider retrial of antipsychotic pending patient's behavior. 01/03/17: Started Exelon patch 4.2mg/24 hours in AM on 01/03, consider trial of Depakote (decided during discussion with family). (2) New onset atrial fibrillation Assessment: Rate-controlled, outpatient echocardiogram recommended Started Exelon patch 4.2mg/24 hours in AM on 01/03, consider trial of Depakote ( decided during discussion with family) though patient's agitation seems reduced today and he is more steady on his feet. Monitor patient's mood, behavior and response to treatment. ARIANA DEY MD Jan 03, 2017 15:03
--- NOTE | 2017-01-03 21:40 | NUR ---
PRN PT IS AWAKE AND ATTEMPTING TO GET OUT OF BED AT THIS TIME. HE IS CHANGED OF INCONT URINE AND REFUSES TO USE URINAL AT THIS TIME. CALL IS PLACED TO SENIOR MANUFACTURING ENGINEER NEW ORDERS ARE RECEIVED FOR PRN ATIVAN IM IT IS TO EARLY TO GIVE SCHEDULED PRN. IM INJECTION IS GIVEN SEE MAR FOR DETAILS. WILL MONITOR FOR EFFECT.
[2017-01-03] MEDS ORDERED: LORAZEPAM 2 MG/ML INJECTION IM ONE (21:45)
--- NOTE | 2017-01-03 22:10 | NUR ---
PRN REVIEW PT IS RESTING EYES CLOSED WITH ALL HIS CLOTHING REMOVED. BLANKETS ARE ALSO REMOVED BY THE PT. RESPS ARE EVEN AND UNLABORED. BED ALARM IS ENGAGED.
--- NOTE | 2017-01-04 06:04 | NUR ---
SHIFT SUMMARY PT IS RESTLESS UNTIL ATIVAN IS GIVEN IM THEN HE CONTINUES TO TALK ON AND OFF THROUGH THE NIGHT AND PICK AT HIS CLOTHING. REMOVES ALL OF HIS CLOTHES AND COVERS SEVERAL TIMES. HAS OUTBURST OF ANGER WITH CARES AND DOES NOT FOLLOW DIRECTION. PT RAISES HIS VOICE AND WILL NOT USE URINAL. SETTLES AT 0100 AND RESTS. BED IS IN LOW POSITION, ALARM IS ON. PT SLEPT TOTAL OF 7.25 HOURS
[2017-01-04] MEDS: FAMOTIDINE 20 MG TABLET PO SCH (09:00)
[2017-01-04] MEDS: MULTIVITAMIN PLAIN TABLET PO SCH (09:00)
--- NOTE | 2017-01-04 10:36 | NUR ---
FIELD CROP TECHNICAL OFFICER--[facility]ILY [facility]CT [facility] made phone call to pt's , Sana, to keep her updated on pt's status. Summarized nursing notes and Dr. Spaulding's progress note. thanked this SW for the update.
[2017-01-04 11:00] VITALS: BP 119/85; PULSE 85; O2SAT 100
[2017-01-04] MEDS: RIVASTIGMINE PATCH REMOVAL TD SCH (12:18)
[2017-01-04] MEDS: RIVASTIGMINE 4.6 MG/24 HR PATCH TD SCH (12:18)
--- NOTE | 2017-01-04 12:24 | NUR ---
INSTRUMENT REPAIR SUPERVISOR The severity of pt's dementia makes it difficult for him to participate in psychoeducational group setting. He remains asleep in his room.
[2017-01-04] MEDS: LORAZEPAM INTENSOL 1mg/0.5ml ORAL SOLUTION SL PRN ×2 (13:00→14:10)
--- NOTE | 2017-01-04 13:00 | NUR ---
Behaviors/Patient Status/PRN Ativan Patient has slept all morning until just after 1230; two previous attempts to wake him up were unsuccessful. Patient sets off the bed alarm and is assisted in to the shower by 2 staff members; he does not understand what simple commands such as staff asking him to sit on the shower chair or wash his face. He stood and allowed cares picking at unseen objects on the floor or trying to take the shower hose as if he needed to work on it. He is dressed and pacing the hallway right now with two staff members on either side as he is very unsteady on his feet (has a tendency to walk sideways or backwards). He does not want to eat lunch saying that he must find his first. He is wandering into others' rooms but at the moment they are empty. PRN dosing of Ativan attempted but patient spit it out. Will allow patient to pace with staff present for safety. He is agitated based on facial expression and tone of voice but has not been physically aggressive
--- NOTE | 2017-01-04 14:10 | NUR ---
Continued Behaviors/PRN Ativan Patient is walking in the hallway with two staff beside him for safety as patient is very unsteady on his feet. He is seen to pull his arm away from staff, movements are more quick and impulsive, pushing at staff and trying to walk quickly/run down the [place]. Staff are able to get patient to sit for a short time in a chair by the front door. He requests some Silver and is given a drink with Ativan 1mg. nurse staff industrial are maintaining constant visual observation with him until such time he is more physically relaxed.
--- NOTE | 2017-01-04 16:10 | NUR ---
PRN f/u Patient paced in the [place] for about 30 minutes following administration of Ativan (see prev note). Staff were able to direct him to a recliner in the day room where he "rolled [invisible] yarn" and picked at the floor. 10 minutes ago staff helped him in to bed where he is currently sleeping now. Exit alarm applied
--- NOTE | 2017-01-04 17:35 | GENPN ---
[facility] Subjective Date DATE: 01/04/17 TIME: 17:31 Subjective/Severity of Illness Medications Current Medications Medications (Trade) Dose Ordered Sig/Gomez Start Time Stop Time Status Last Admin Dose Admin Miscellaneous Medication (May use PRN orders) 1 PRN PRN 12/31/16 18:30 Haloperidol (Haldol) 0.5 mg Q6H PRN 12/31/16 18:30 12/31/16 19:51 DC Lorazepam (Ativan) 0.5 mg Q6H PRN 12/31/16 18:30 12/31/16 19:51 DC Lorazepam (Ativan) 0.5 mg Q6H PRN 12/31/16 18:30 12/31/16 19:51 DC Haloperidol Lactate (Haldol 5 Mg/ml Inj) 0.5 mg Q6H PRN 12/31/16 18:30 12/31/16 19:51 DC Donepezil HCl (Aricept) 10 mg HS 12/31/16 21:00 01/01/17 08:57 DC 12/31/16 21:07 10 MG Famotidine (Pepcid) 20 mg DAILY 01/01/17 09:00 01/02/17 08:56 20 MG Memantine (Namenda) 10 mg HS 12/31/16 21:00 01/01/17 08:57 DC 12/31/16 21:07 10 MG Temazepam (Restoril) 15 mg HS PRN 12/31/16 18:30 01/01/17 20:50 DC Memantine (Namenda) 5 mg DAILY 01/01/17 09:00 01/01/17 09:00 DC Haloperidol (Haldol) 2 mg Q6H PRN 01/01/17 00:30 01/01/17 17:29 DC 12/31/16 21:07 2 MG Haloperidol Lactate (Haldol 5 Mg/ml Inj) 2 mg Q6H PRN 01/01/17 00:30 01/02/17 17:17 DC Lorazepam (Ativan) 1 mg Q6H PRN 01/01/17 00:30 01/03/17 17:49 1 MG Lorazepam (Ativan) 1 mg Q6H PRN 01/01/17 00:30 01/02/17 23:07 1 MG Clonazepam (Klonopin) 0.5 mg HS 12/31/16 21:00 01/03/17 20:21 0.5 MG Naproxen Sodium (ALEVE 220 mg) 220 mg BIDWM PRN 12/31/16 20:30 Multivitamins Therapeutic (Theragran) 1 tab DAILY 01/01/17 09:00 01/02/17 08:56 1 TAB Memantine (Namenda) 10 mg BID 01/20/17 21:00 Memantine (Namenda) 5 mg BID 01/20/17 21:00 Donepezil HCl (Aricept) 10 mg HS 01/20/17 21:00 01/20/17 21:00 DC Olanzapine (Zyprexa Zydis) 5 mg HS 01/01/17 21:00 01/02/17 17:17 DC 01/01/17 19:52 5 MG Olanzapine (ZYPREXA 2.5 mg) 2.5 mg Q6HR PRN 01/01/17 17:30 01/02/17 17:17 DC 01/02/17 15:34 2.5 MG Donepezil HCl (Aricept) 5 mg HS 01/20/17 21:00 Rivastigmine Tartrate (Exelon) 1.5 mg BID 01/03/17 09:00 01/03/17 09:00 DC Rivastigmine Tartrate (Exelon Patch) 4.6 mg DAILY 01/03/17 09:00 01/04/17 12:18 4.6 MG Rivastigmine Tartrate (Exelon Patch Removal) 1 removal DAILY 01/04/17 09:00 01/04/17 12:18 1 REMOVAL Lorazepam (Ativan Intensol) 1 mg Q6H PRN 01/04/17 13:00 01/04/17 13:00 1 MG Subjective Patient seen and chart reviewed. Case discussed with treatment team. Nursing reports pt is very unsteady on his feet and is aggressive at times. Pt required Ativan 2 mg last night and 1mg today at lunch for aggression and agitation. Pt slept well and has a poor appetite. On face to face the pt is resting comfortably in bed. He is pleasant but confused and is tired. He voices no concerns at this time. Time of Service: 16:45 Start Time: 16:45 Stop Time: 17:00 Care >50% of this visit spent in counseling/coordination care. [facility] Exam Vitals Vital Signs Date Time Temp Pulse Resp B/P Pulse Ox O2 Delivery O2 Flow Rate FiO2 01/04/17 11:00 85 119/85 100 Room Air 01/03/17 20:07 97.7 16 Physical examination performed by the hospitalist. Height (Feet): 5 Height (Inches): 11.00 Mental Status Exam Muscle Strength/Tone: Weak Dressing: Casual Grooming: Fair Attitude: Guarded Motor Activity: Retardation Eye Contact: Fair Speech: Slowed Volume: Soft Rhythm: Appropriate Rhythm Sensory: Drowsy Orientation: Oriented to person Mood: Neutral, Depressed Affect: Blunted Rate of Thoughts: Delayed Thought Organization: [place] Associations: Illogical Abstract Reasoning: Impaired, concrete Thought Content: Delusions Perception/Psychotic: Psychotic Current Hallucinations: Visual Attention Span/Concentration: Short Span Fund of Knowledge: Poor fund of knowledge Memory: Poor-immediate, Poor-recent Suicidal Ideation: None Homicidal Ideation: None Insight: Poor Judgment: Poor Impulse Control: Poor Assessment and Plan (1) Major neurocognitive disorder Assessment: with behavioral disturbance History of Alzheimer's dementia, Lewy Body dementia suspected Plan: 01/02/17: Plan to cross-taper Aricept with Rivastigmine, which has been shown to be more helpful with behavioral disturbance in LBD. Will discontinue olanzapine.. Consider retrial of antipsychotic pending patient's behavior. 01/03/17: Started Exelon patch 4.2mg/24 hours in AM on 01/03, consider trial of Depakote (decided during discussion with family). 01/04/17 Depakote 125mg PO BID (2) New onset atrial fibrillation Assessment: Rate-controlled, outpatient echocardiogram recommended Depakote 125mg PO BID LIONEL LYNN MD Jan 04, 2017 17:34
--- NOTE | 2017-01-04 19:01 | NUR ---
Shift Summary Patient is awake at 1730, gets up with assistance of staff and walks to the dining room. He is uninterested in eating - picks at the floor and continues to roll unseen yarn/string. Staff attempt to get his attention on small tasks like taking a drink of water or holding a spoon with food on it, but again seems uninterested. He did take half of a chocolate mighty shake before spilling it. He has been trying to get up from the recliners without help but staff have been close by and are able to help him. He has not been physically or verbally aggressive this shift, has not had any obvious command hallucinations but noted visual (see notes).
[2017-01-04 19:20] VITALS: BP 97/67; PULSE 100; RESP 16; TEMP 97.7; O2SAT 97
[2017-01-04] MEDS: CLONAZEPAM 0.5 MG TABLET PO SCH (20:30)
[2017-01-04] MEDS: DIVALPROEX SPRINKLE 125 MG CAPSULE PO SCH (20:30)
[2017-01-04] MEDS: DONEPEZIL PO SCH (20:30)
[2017-01-04] MEDS: MEMANTINE PO SCH (20:30)
[2017-01-04] MEDS: LORAZEPAM 0.5 MG TABLET PO PRN (20:31)
--- NOTE | 2017-01-04 23:06 | NUR ---
Status/PRN Assumed patient care at 1899 and assessment completed at 1919. Patient is sitting in dayroom recliner at time of assessment - restless at times but will often keep eyes closed. Allows assessment but does cuss briefly, otherwise speech is very soft/mumbled/nonsensical and difficult to understand (difficult to assess for delusional thinking/comments). He nearly continually picks at unseen things (in the air, on the floor, in his chair, and as if pulling something off of his fingers/arms). He does not follow simple commands or appear to comprehend what staff is telling him. At times he will get down on his knees in front of his recliner and pick at the frame of the chair. He is very unsteady and only ambulates short distances (wants to get down on the floor, does not stand up straight enough to ambulate, and is unable to take steps without his feet crossing over one another). VS are stable (B/P is 97/67). Increasingly restless toward HS and cusses at/lightly pushes at staff with an open hand while assistance with cares/ambulating is provided. HS meds taken only after multiple reattempts - in a small amount of chocolate mighty shake (consistently refuses all other offered food/drinks). Ativan 1 mg. given po (at 2030) with HS medications for restlessness and inability to redirect. Patient is resting quietly at the current time. Bed alarm is on and side rails are up x3.
[2017-01-05 06:00] VITALS: BP 97/69; PULSE 86; RESP 16; TEMP 96.9; O2SAT 96
--- NOTE | 2017-01-05 06:22 | NUR ---
Summary/Bladder Scan Patient slept 8.5 hours this shift. TORSTEN to person only and with seemingly poor comprehension of staff attempts to communicate/explain/redirect. Restless last evening - calms following prn Ativan. Patient with poor safety awareness and requires staff assistance with ambulation/cueing for safety. Speech is mostly mumbled/garbled - nonsensical or cussing when able to be understood. Resistant to staff assistance with cares/medication administration/offering food and water - pushes lightly at staff with an open hand, but no other physical aggression is noted. Some cussing but no threatening comments or gestures are noted. Frequent visual/tactile hallucinations are noted; patient is seen manipulating unseen things in the air, picking at the floor, and pulling something off/wrapping something around his hands/arms. Delusional thinking is difficult to assess due to poor communication skills. Incontinent x1 this shift - dry this morning. Bladder scan shows 270-289 ml. PO fluids encouraged but patient continues to refuse. Sleeps quietly when undisturbed. Bed alarm is on and side rails are up x3.
--- NOTE | 2017-01-05 06:22 | NUR ---
Chart Check 24 hour chart check completed
[2017-01-05] MEDS: RIVASTIGMINE PATCH REMOVAL TD SCH (09:00)
--- NOTE | 2017-01-05 09:09 | PNPDOC ---
GILDA KURTZ SR. DIRECTOR 01/05/17 0902: Subjective Date DATE: 01/05/17 TIME: 08:59 Subjective Duy was sleeping during my visit. Nursing staff report that he is A&O to self only when awake and has been resistant to cares. He has poor comprehension of instructions and equally poor communication skills. He has poor safety awareness. He has frequent visual/tactile hallucinations. He has hardly been taking in any oral food or fluids - last intake was on 01/03. Objective Vital Signs Vital signs Vital Signs Date Time Temp Pulse Resp B/P Pulse Ox O2 Delivery O2 Flow Rate FiO2 01/05/17 06:00 96.9 86 16 97/69 96 Room Air Height (Feet): 5 Height (Inches): 11.00 Weight (Kilograms): 77.200 General General Appearance: No Acute Distress Comments Malnourished Respiratory (Brief) Respiratory: FOUND: clear all cowan, equal bilaterally Cardiovascular (Brief) Cardiac: FOUND: other (irregularly irregular) Abdomen (Brief) Abdominal: FOUND: BS normo active x4 (hypoactive) Comments scaphoid in appearance (Brief) Comments incontinent Extremities (Brief) Extremity : Side: Bilateral Extremity Finding: NOT FOUND: edema Musculoskeletal (Brief) Musculoskeletal: FOUND: other (atrophy to b/l lower ext.) Integumentary (Brief) Integumentary: FOUND: dry, warm Psychiatric (Brief) Psychiatric: FOUND: other (sleeping; when awake A&O x1) Sepsis Diagnostic Criteria Sepsis Confirmed/Suspected Infection: No Assessment & Plan Problems: (1) Hypotension Status: Acute (2) Anorexia Status: Acute (3) New onset atrial fibrillation Status: Acute (4) Behavior disturbance Status: Acute (5) Dementia Status: Chronic Plan/Intensity of Service Concerned because of essentially no oral intake, poor communication, frequent hallucinations, incontinence, ineffective ambulation, and reliance on staff for all cares. Pt's clinical condition is consistent with end-stage dementia, and hospice consult would be appropriate. Will check BMP d/t poor oral intake - may give IVF. Also hypotensive - could be hypovolemia secondary to dehydration. [facility] staff and Dr. Guevara plan on discussing goals of care with family today. [facility] staff does not believe that the patient would tolerate an IV well. Discussed with Dr. Carmona. Code Status Do Not Resuscitate Hospital Course Summary Disclaimer The hospital course summary below is not to be considered part of the above Progress Note. Hospital Course Summary 01/03/17 Dr Spaulding continues to work on behavior treatment. Goal is to keep both patient and staff safe Lipid panel reviewed, Hgb A1c on admission 5.4 Have asked nursing staff to call PCP office Dr Dolan from [place], [place] to obtain further PMH Otherwise is medically stable 01/05/17 Concerned because of essentially no oral intake, poor communication, frequent hallucinations, incontinence, ineffective ambulation, and reliance on staff for all cares. Pt's clinical condition is consistent with end-stage dementia, and hospice consult would be appropriate. Will check BMP d/t poor oral intake - may give IVF. Also hypotensive - could be hypovolemia secondary to dehydration. [facility] staff and Dr. Guevara plan on discussing goals of care with family today. Nsg staff does not believe that the patient would tolerate an IV well. LUDIN CARMONA MD 01/05/172027: Assessment & Plan Assessment I have independently evaluated and examined this patient. I reviewed the chart, the patient's history, and the SR. DIRECTOR's documented findings as above. We discussed and formulated the assessment and plan as above with additions as below: Mr. Bass was seen in his room this evening. Nursing reports he ate and drank well earlier today after poor oral intake for 2 days. He was resting in bed when seen but was awake with mumbled speech. Answers could not be interpreted but what little could be made out did not appear to correspond to questions asked. Exam: Breath sounds diminished throughout Cardiac rhythm irregular, no peripheral edema Abdomen benign Lipids noted, LDL 77. BUN slightly elevated at 26. B-12 636. Blood pressure stabilized after initial reading this morning, tends to have borderline tachycardia. Will need further clarification of 's goals before proceeding. GILDA KURTZ APRN Jan 05, 2017 09:02 LUDIN CARMONA MD Jan 05, 2017 20:28
[2017-01-05 10:15] VITALS: BP 130/85; PULSE 97; RESP 16; RESP 20; TEMP 98.3; O2SAT 95
--- NOTE | 2017-01-05 10:15 | NUR ---
Pt Status Pt sits up in bed, spits and picks at the air. Up to bathroom 2 assist per w/c, cooperative but oriented only to name, has visual hallucinations as reports sees thorns on the floor. Speech is also word salad and will on occasion have some phrases that connect together. Talks about hunting.
--- NOTE | 2017-01-05 10:35 | NUR ---
PRN Med Pt given Ativan 1 mg po with routine a.m. meds. Pt paces after up and dressed and not able to be directed. Pt. picks at floor and when at the table reaches for no object present.
[2017-01-05] MEDS: FAMOTIDINE 20 MG TABLET PO SCH (10:37)
[2017-01-05] MEDS: MULTIVITAMIN PLAIN TABLET PO SCH (10:37)
[2017-01-05] MEDS: DIVALPROEX SPRINKLE 125 MG CAPSULE PO SCH ×2 (10:37→19:56)
[2017-01-05] MEDS: RIVASTIGMINE 4.6 MG/24 HR PATCH TD SCH (10:37)
[2017-01-05] MEDS: LORAZEPAM 0.5 MG TABLET PO PRN (10:38)
--- NOTE | 2017-01-05 11:11 | GENPN ---
[facility] Subjective Date DATE: 01/05/17 TIME: 11:07 Subjective/Severity of Illness Medications Current Medications Medications (Trade) Dose Ordered Sig/Gomez Start Time Stop Time Status Last Admin Dose Admin Miscellaneous Medication (May use PRN orders) 1 PRN PRN 12/31/16 18:30 Haloperidol (Haldol) 0.5 mg Q6H PRN 12/31/16 18:30 12/31/16 19:51 DC Lorazepam (Ativan) 0.5 mg Q6H PRN 12/31/16 18:30 12/31/16 19:51 DC Lorazepam (Ativan) 0.5 mg Q6H PRN 12/31/16 18:30 12/31/16 19:51 DC Haloperidol Lactate (Haldol 5 Mg/ml Inj) 0.5 mg Q6H PRN 12/31/16 18:30 12/31/16 19:51 DC Donepezil HCl (Aricept) 10 mg HS 12/31/16 21:00 01/01/17 08:57 DC 12/31/16 21:07 10 MG Famotidine (Pepcid) 20 mg DAILY 01/01/17 09:00 01/05/17 10:37 20 MG Memantine (Namenda) 10 mg HS 12/31/16 21:00 01/01/17 08:57 DC 12/31/16 21:07 10 MG Temazepam (Restoril) 15 mg HS PRN 12/31/16 18:30 01/01/17 20:50 DC Memantine (Namenda) 5 mg DAILY 01/01/17 09:00 01/01/17 09:00 DC Haloperidol (Haldol) 2 mg Q6H PRN 01/01/17 00:30 01/01/17 17:29 DC 12/31/16 21:07 2 MG Haloperidol Lactate (Haldol 5 Mg/ml Inj) 2 mg Q6H PRN 01/01/17 00:30 01/02/17 17:17 DC Lorazepam (Ativan) 1 mg Q6H PRN 01/01/17 00:30 01/05/17 10:38 1 MG Lorazepam (Ativan) 1 mg Q6H PRN 01/01/17 00:30 01/02/17 23:07 1 MG Clonazepam (Klonopin) 0.5 mg HS 12/31/16 21:00 01/04/17 20:30 0.5 MG Naproxen Sodium (ALEVE 220 mg) 220 mg BIDWM PRN 12/31/16 20:30 Multivitamins Therapeutic (Theragran) 1 tab DAILY 01/01/17 09:00 01/05/17 10:37 1 TAB Memantine (Namenda) 10 mg BID 01/20/17 21:00 Memantine (Namenda) 5 mg BID 01/20/17 21:00 Donepezil HCl (Aricept) 10 mg HS 01/20/17 21:00 01/20/17 21:00 DC Olanzapine (Zyprexa Zydis) 5 mg HS 01/01/17 21:00 01/02/17 17:17 DC 01/01/17 19:52 5 MG Olanzapine (ZYPREXA 2.5 mg) 2.5 mg Q6HR PRN 01/01/17 17:30 01/02/17 17:17 DC 01/02/17 15:34 2.5 MG Donepezil HCl (Aricept) 5 mg HS 01/20/17 21:00 Rivastigmine Tartrate (Exelon) 1.5 mg BID 01/03/17 09:00 01/03/17 09:00 DC Rivastigmine Tartrate (Exelon Patch) 4.6 mg DAILY 01/03/17 09:00 01/05/17 10:37 4.6 MG Rivastigmine Tartrate (Exelon Patch Removal) 1 removal DAILY 01/04/17 09:00 01/05/17 09:00 1 REMOVAL Lorazepam (Ativan Intensol) 1 mg Q6H PRN 01/04/17 13:00 01/04/17 14:10 1 MG Divalproex Sodium (Depakote Sprinkle) 125 mg BID 01/04/17 21:00 01/05/17 10:37 125 MG Subjective Patient seen and chart reviewed. Case discussed with nursing. Nursing reports pt remains unsteady and confused and is having visual hallucinations but has been up and eating today and no behaviors noted. On face to face the pt is pleasant but confused. He often does not answer the question asked. He is only oriented to self. He denies any pain. Tolerating meds. Time of Service: :45 Start Time: 10:45 Stop Time: 11:00 Care >50% of this visit spent in counseling/coordination care. [facility] Exam Vitals Vital Signs Date Time Temp Pulse Resp B/P Pulse Ox O2 Delivery O2 Flow Rate FiO2 01/05/17 10:15 98.3 97 20 130/85 95 Room Air Physical examination performed by the hospitalist. Height (Feet): 5 Height (Inches): 11.00 Mental Status Exam Muscle Strength/Tone: Normal Dressing: Casual Grooming: Good Attitude: Guarded Motor Activity: Retardation Eye Contact: Good Speech: Slowed Volume: Soft Rhythm: Slurred Sensory: Alert Orientation: Oriented to person Mood: Irritable Affect: Congruent Rate of Thoughts: Delayed Thought Organization: [place] Associations: Illogical Abstract Reasoning: Impaired, concrete Thought Content: Delusions Perception/Psychotic: Psychotic Current Hallucinations: Visual Attention Span/Concentration: Short Span Fund of Knowledge: Poor fund of knowledge Memory: Poor-immediate, Poor-recent Suicidal Ideation: None Homicidal Ideation: None Insight: Poor Judgment: Poor Impulse Control: Poor Assessment and Plan (1) Major neurocognitive disorder Assessment: with behavioral disturbance History of Alzheimer's dementia, Lewy Body dementia suspected Plan: 01/02/17: Plan to cross-taper Aricept with Rivastigmine, which has been shown to be more helpful with behavioral disturbance in LBD. Will discontinue olanzapine.. Consider retrial of antipsychotic pending patient's behavior. 01/03/17: Started Exelon patch 4.2mg/24 hours in AM on 01/03, consider trial of Depakote (decided during discussion with family). 01/04/17 Depakote 125mg PO BID 01/05/17 Continue current care (2) New onset atrial fibrillation Assessment: Rate-controlled, outpatient echocardiogram recommended Cont. current psych. meds LIONEL LYNN MD Jan 05, 2017 11:10
--- NOTE | 2017-01-05 11:30 | NUR ---
Response to PRN med Pt able to sit at dining table and ate 75% and did well with drinking liquids. Continued speech confused and pt not able to self direct and activity but will cooperate with prompting at intervals. No verbal or physical aggression.
--- NOTE | 2017-01-05 12:30 | NUR ---
Pt status Pt cooperative with meds and ate with help, does not utilize utensils as intended and needs redirection. Pt is impulsive and will stand up and walk and is very unsteady. 2 assist with walking and leans to left and gait belt utilized for safety. Speech rambling, but normal tone, no verbal or physical aggression noted. Talked via phone to and pleasant tone.
--- NOTE | 2017-01-05 14:10 | NUR ---
PRN Med Pt. given Ativan Intensol 1 mg liquid for agitation. Pt paces with two staff for safety. Pt picks at floor and has movement of winding something with hands despite nothing in hands. Not able to be directed and is impulsive and unsafe, requiring 1:1 at all times. No verbal aggression but has comments of exit seeking, "go get the car." Pt given different tactile projects from [employer] supplies but not able to attend to any tasks. Speech is flight of ideas.
[2017-01-05 14:45] LABS: ANION GAP 11 MEQ/L (5-15); BUN/CREATININE RATIO 24 RATIO (6-26); CALCIUM 9.4 MG/DL (8.4-10.2); CHLORIDE 103 MEQ/L (98-107); CO2 - CARBON DIOXIDE 28 MEQ/L (22-30); CREATININE 1.1 MG/DL (0.8-1.5); GLOMERULAR FILTRATION RATE 65; GLUCOSE 116 MG/DL (75-110); POTASSIUM 4.9 MEQ/L (3.6-5); SODIUM 142 MEQ/L (134-144)
[2017-01-05] MEDS ORDERED: LORAZEPAM INTENSOL 1mg/0.5ml ORAL SOLUTION SL ONE (14:45)
[2017-01-05 16:00] VITALS: BP 126/68; PULSE 103; RESP 18; TEMP 97.8; O2SAT 97
--- NOTE | 2017-01-05 16:45 | NUR ---
Pt very unsteady and continued impulsive but not as intense as pre-prn med. Pt to bed and 3 rails up and alarm on and staff stayed with pt. Restless movements, and picking in the air, left arm tremor and then intervals of rest as near sleep but stirs self awake and onto random picking at linens and pulls off bandaids from hand sores. Has mumbled random words with no one subject.
--- NOTE | 2017-01-05 18:18 | NUR ---
Shift Summary Pt had 3.0 hr of sleep. Required constant observation while awake due to impulsive actions and unsteady; can not stand unassisted without loosing balance, crossing feet, leaning to left or forward or both. Pt expresses frustration verbally at times but not loud or abusive. Did engage with brief kicking of beach ball and working on OT activity board with locks and other hardware. Offered blocks that needed sanding, and pt did not engage. Pt did have BMP drawn with 3 staff to support arm and encourage holding still. Did well with taking meds today and drinking liquids.
[2017-01-05 19:15] VITALS: BP 117/69; PULSE 87; RESP 16; TEMP 97.9; O2SAT 94
[2017-01-05] MEDS: CLONAZEPAM 0.5 MG TABLET PO SCH (19:56)
[2017-01-05] MEDS: MEMANTINE PO SCH (19:57)
[2017-01-05] MEDS: DONEPEZIL PO SCH (19:57)
[2017-01-05] MEDS: LORAZEPAM INTENSOL 1mg/0.5ml ORAL SOLUTION SL PRN (19:58)
[2017-01-05 21:12] VITALS: BP 111/78; PULSE 95; RESP 16; TEMP 97.4; O2SAT 95
--- NOTE | 2017-01-05 21:22 | NUR ---
Status/PRN/PRN Follow-up Assumed patient care at 1900 and assessment completed at 191. Patient is in room, awake and resting in bed at time of assessment. Rambling/nonsensical and mumbled speech (garbled at times). Picks at blankets, at the air, and as if manipulating something in/around his hands/fingers. Oriented to person only and does not follow simple commands. Looks to an empty space in the room and calls out/converses incoherently. Incontinent of urine; resistive to cares - kicks/cusses and is unable to redirect (seemingly poor to no comprehension of staff explanations/reassurances). Attempts to distract with conversation/activity are unsuccessful. Takes prune juice (last documented bowel movement was 3-17) and HS medications crushed and placed in a chocolate mighty shake. Ativan intensol 1 mg. given with HS medications (at 1957) for restlessness/agitation. Quiet for a short time following cares/medication administration but overall, remains restless/fidgety - picking at the air and his blankets/talking as if to someone unseen in the room. VS remain stable. Bed alarm is on and side rails are up x3.
--- NOTE | 2017-01-05 23:29 | NUR ---
Chart Check 24 hour chart check completed
--- NOTE | 2017-01-06 06:26 | NUR ---
Summary Patient slept 2 hours this shift. Oriented to self only and with seemingly poor to no comprehension of staff questions, explanations, or reassurances. Restless last evening and resistive to cares - mild aggression (kicking lightly at staff and cussing briefly) but unable to redirect. Tactile/visual hallucinations are noted; patient picks at the air/manipulates unseen things with his hands. He directs his conversation (albeit nonsensically and mumbled/garbled) as if to an unseen person - and at times with his eyes closed. Ativan given prn was somewhat helpful in quieting patient (he sleeps for only a brief time) although he remains awake for most of the shift, talking quietly or picking at the air/bed linens. Food/fluids offered and patient refuses (only takes prune juice and small amount of mighty shake last evening). Music played softly in room without noted benefit. Incontinent of urine and does not notify staff of needs. Compliant with medications this shift. Cooperative with cares throughout the night and following prn Ativan. Falls asleep just before 0500 and is resting quietly at the current time. Bed alarm is on and side rails are up x3.
--- NOTE | 2017-01-06 09:00 | NUR ---
Pt sleeping and assessment done of heart and lung sounds. Pt noted dry (no incontinence) and tilted pt to right side with pillows. Mumbles at intervals and random nonpurposeful movement of extremities. No breakfast or liquids at this time due to somnolence.
[2017-01-06 09:10] VITALS: BP 105/73; PULSE 78; RESP 16; TEMP 97.1; O2SAT 97
[2017-01-06 10:14] VITALS: PULSE 78; RESP 16
--- NOTE | 2017-01-06 11:10 | NUR ---
Pt responds to verbal and tactile stimuli as repositioned and checked for incontinence and skin integrity. Pt has random mumbled words but did indicate he needed to void, urinal held and voided 275 ml of lila urine. Pt has tense muscle tone and some tremor-like movements of arms and legs.Offered pt some liquids to drink but dozes off shortly after speaking so nothing by mouth at this time. Pt reports he needs "sleep."
--- NOTE | 2017-01-06 11:41 | GENPN ---
Generations Subjective Date DATE: 01/06/17 TIME: 11:37 Subjective/Severity of Illness Medications Current Medications Medications (Trade) Dose Ordered Sig/Gomez Start Time Stop Time Status Last Admin Dose Admin Miscellaneous Medication (May use PRN orders) 1 PRN PRN 12/31/16 18:30 Haloperidol (Haldol) 0.5 mg Q6H PRN 12/31/16 18:30 12/31/16 19:51 DC Lorazepam (Ativan) 0.5 mg Q6H PRN 12/31/16 18:30 12/31/16 19:51 DC Lorazepam (Ativan) 0.5 mg Q6H PRN 12/31/16 18:30 12/31/16 19:51 DC Haloperidol Lactate (Haldol 5 Mg/ml Inj) 0.5 mg Q6H PRN 12/31/16 18:30 12/31/16 19:51 DC Donepezil HCl (Aricept) 10 mg HS 12/31/16 21:00 01/01/17 08:57 DC 12/31/16 21:07 10 MG Famotidine (Pepcid) 20 mg DAILY 01/01/17 09:00 01/05/17 10:37 20 MG Memantine (Namenda) 10 mg HS 12/31/16 21:00 01/01/17 08:57 DC 12/31/16 21:07 10 MG Temazepam (Restoril) 15 mg HS PRN 12/31/16 18:30 01/01/17 20:50 DC Memantine (Namenda) 5 mg DAILY 01/01/17 09:00 01/01/17 09:00 DC Haloperidol (Haldol) 2 mg Q6H PRN 01/01/17 00:30 01/01/17 17:29 DC 12/31/16 21:07 2 MG Haloperidol Lactate (Haldol 5 Mg/ml Inj) 2 mg Q6H PRN 01/01/17 00:30 01/02/17 17:17 DC Lorazepam (Ativan) 1 mg Q6H PRN 01/01/17 00:30 01/05/17 10:38 1 MG Lorazepam (Ativan) 1 mg Q6H PRN 01/01/17 00:30 01/02/17 23:07 1 MG Clonazepam (Klonopin) 0.5 mg HS 12/31/16 21:00 01/05/17 19:56 0.5 MG Naproxen Sodium (ALEVE 220 mg) 220 mg BIDWM PRN 12/31/16 20:30 Multivitamins Therapeutic (Theragran) 1 tab DAILY 01/01/17 09:00 01/05/17 10:37 1 TAB Memantine (Namenda) 10 mg BID 01/20/17 21:00 Memantine (Namenda) 5 mg BID 01/20/17 21:00 Donepezil HCl (Aricept) 10 mg HS 01/20/17 21:00 01/20/17 21:00 DC Olanzapine (Zyprexa Zydis) 5 mg HS 01/01/17 21:00 01/02/17 17:17 DC 01/01/17 19:52 5 MG Olanzapine (ZYPREXA 2.5 mg) 2.5 mg Q6HR PRN 01/01/17 17:30 01/02/17 17:17 DC 01/02/17 15:34 2.5 MG Donepezil HCl (Aricept) 5 mg HS 01/20/17 21:00 Rivastigmine Tartrate (Exelon) 1.5 mg BID 01/03/17 09:00 01/03/17 09:00 DC Rivastigmine Tartrate (Exelon Patch) 4.6 mg DAILY 01/03/17 09:00 01/05/17 10:37 4.6 MG Rivastigmine Tartrate (Exelon Patch Removal) 1 removal DAILY 01/04/17 09:00 01/05/17 09:00 1 REMOVAL Lorazepam (Ativan Intensol) 1 mg Q6H PRN 01/04/17 13:00 01/05/17 19:58 1 MG Divalproex Sodium (Depakote Sprinkle) 125 mg BID 01/04/17 21:00 01/05/17 19:56 125 MG Subjective Patient seen and chart reviewed. Case discussed with nursing. Nursing reports pt only slept 2 hours but did sleep in this morning. Pt ate 75% of lunch and dinner yesterday. Pt received Ativan on 2 occasions yesterday for agitation. Pt was kicking at staff and was difficult to redirect. Pt's meds are being crushed because he refuses them if not. On face to face the pt is oriented only to self. He is irritable and states he just wants to sleep. He denies any pain and voices no concerns at this time. Time of Service: 11:00 Start Time: 11:00 Stop Time: 11:15 Care >50% of this visit spent in counseling/coordination care. Generations Exam Vitals Vital Signs Date Time Temp Pulse Resp B/P Pulse Ox O2 Delivery O2 Flow Rate FiO2 01/06/17 10:14 78 16 01/06/17 09:10 97.1 105/73 97 Room Air Physical examination performed by the hospitalist. Height (Feet): 5 Height (Inches): 11.00 Mental Status Exam Muscle Strength/Tone: Normal Dressing: Casual Grooming: Good Attitude: Guarded Motor Activity: Retardation Eye Contact: Fair Speech: Slowed Volume: Soft Rhythm: Slurred Sensory: Alert Orientation: Oriented to person Mood: Anxious Affect: Congruent Rate of Thoughts: Delayed Thought Organization: [place] Associations: Illogical Abstract Reasoning: Impaired, concrete Thought Content: Delusions Perception/Psychotic: Psychotic Current Hallucinations: Visual Attention Span/Concentration: Short Span Fund of Knowledge: Poor fund of knowledge Memory: Poor-immediate, Poor-recent Suicidal Ideation: None Homicidal Ideation: None Insight: Poor Judgment: Poor Impulse Control: Poor Laboratory Tests Test 01/05/17 14:20 Turbidity < 20 Sodium Level 142MEQ/L Potassium Level 4.9MEQ/L Chloride Level 103MEQ/L Carbon Dioxide Level 28MEQ/L Anion Gap 11MEQ/L Blood Urea Nitrogen 26.0MG/DL Creatinine 1.1MG/DL Glomerular Filtration Rate Calc 65 BUN/Creatinine Ratio 24RATIO Glucose Level 116MG/DL Calculated Osmolality 279MOSM/KG Calcium Level 9.4MG/DL Icterus Index < 2 Chemistry Specimen Hemolysis 97 Assessment and Plan (1) Major neurocognitive disorder Assessment: with behavioral disturbance History of Alzheimer's dementia, Lewy Body dementia suspected Plan: 01/02/17: Plan to cross-taper Aricept with Rivastigmine, which has been shown to be more helpful with behavioral disturbance in LBD. Will discontinue olanzapine.. Consider retrial of antipsychotic pending patient's behavior. 01/03/17: Started Exelon patch 4.2mg/24 hours in AM on 01/03, consider trial of Depakote (decided during discussion with family). 01/04/17 Depakote 125mg PO BID 01/05/17 Continue current care 01/06/17 Continue current care (2) New onset atrial fibrillation Assessment: Rate-controlled, outpatient echocardiogram recommended Cont. current psych. meds LIONEL LYNN MD Jan 06, 2017 11:40
[2017-01-06] MEDS: FAMOTIDINE 20 MG TABLET PO SCH (12:27)
[2017-01-06] MEDS: MULTIVITAMIN PLAIN TABLET PO SCH (12:27)
[2017-01-06] MEDS: DIVALPROEX SPRINKLE 125 MG CAPSULE PO SCH ×2 (12:27→20:32)
[2017-01-06] MEDS: RIVASTIGMINE 4.6 MG/24 HR PATCH TD SCH (12:31)
[2017-01-06] MEDS: RIVASTIGMINE PATCH REMOVAL TD SCH (12:40)
--- NOTE | 2017-01-06 12:48 | NUR ---
PRN Med Pt awake but speech word salad and picks at covers and gown. HOB elevated for attempting liquids and pt reports "no alcohol" and did drink juice and requested water and drank 200 ml. Given Ativan 1 mg intensol for increasing agitation. Pt. picks at air, clothing and pushes on rail.
[2017-01-06] MEDS: LORAZEPAM INTENSOL 1mg/0.5ml ORAL SOLUTION SL PRN ×3 (12:49→21:36)
--- NOTE | 2017-01-06 14:00 | NUR ---
PRN response Able to dress patient and up to recliner 2 assist. Very unsteady and poor weight bearing. Pt. unable to follow simple prompts and continued movement of arms randomly and air picking. Also does motion of winding something with hands. Speech disorganized and occasional cursing. No physical aggression but occasional expressed wave of hand to leave him alone.
[2017-01-06] MEDS ORDERED: MILK OF MAGNESIA 30 ML SUSP PO ONE (14:45)
[2017-01-06] MEDS: POLYETHYL.GLYCOL 3350 PACKET 17gm PO SCH (14:45)
[2017-01-06] MEDS ORDERED: BISACODYL 10 MG SUPPOSITORY RECTALLY PRN (14:45)
[2017-01-06] MEDS: MILK OF MAGNESIA 30 ML SUSP PO PRN (15:15)
[2017-01-06 15:54] VITALS: BP 116/76; PULSE 101; RESP 20; TEMP 97.8; O2SAT 92
--- NOTE | 2017-01-06 18:00 | NUR ---
Shift Summary Pt. given bag bath as incontinent of urine and smears of stool. Pt continued to refuse liquids at present and speech disorganized and rambling. Also picks at air and hits on top of bedrail as if trying to dislodge position (hits with palm of hand) and resistant to being turned for bath, 2 assist to reposition. Stiffens legs and arms and pushes against staff with cares.
[2017-01-06 20:00] VITALS: PULSE 72; RESP 20
[2017-01-06] MEDS: MEMANTINE PO SCH (20:30)
[2017-01-06] MEDS: DONEPEZIL PO SCH (20:30)
[2017-01-06] MEDS: CLONAZEPAM 0.5 MG TABLET PO SCH (20:31)
--- NOTE | 2017-01-06 22:11 | NUR ---
Moves about in bed. Speech is mumbled in form of word salad. Spit HS meds out. Becomes more restless. Ativan Intensol given successfully.
[2017-01-06 22:19] VITALS: BP 134/72; PULSE 106; RESP 16; TEMP 96.4; O2SAT 100
[2017-01-07] VITALS: BP 0/0; PULSE 0; RESP 0; O2SAT 0
--- NOTE | 2017-01-07 00:07 | NUR ---
Chart Check 24 hour chart check completed
--- NOTE | 2017-01-07 00:17 | NUR ---
MID SHIFT: Ativan Intensol effective. Pt. is less restless. Rests in bed. Talking quietly.
--- NOTE | 2017-01-07 06:06 | NUR ---
END OF SHIFT: Talks quitely during the night when he is suppose to be sleeping. Incontinent X2. Bed alert did not alarm this shift. Becomes agitated with hygeine cares, turning and repostioning. Slept total of 1.75 hr. tonight
--- NOTE | 2017-01-07 08:31 | PNPDOC ---
Subjective Date DATE: 01/07/17 TIME: 08:25 Subjective Duy was sleeping in bed. I did not awaken him because he had a rough night. He was restless and slept for less than 2 hours. He received extra doses of Ativan in the late evening hours. His oral intake has improved, but still remains poor. Objective Vital Signs Vital signs Vital Signs Date Time Temp Pulse Resp B/P Pulse Ox O2 Delivery O2 Flow Rate FiO2 01/07/17 00:00 0 0 0/0 0 01/06/17 22:19 96.4 Room Air Height (Feet): 5 Height (Inches): 11.00 Weight (Kilograms): 77.200 General General Appearance: No Acute Distress ENMT (Brief) ENMT: NOT FOUND: mucosa moist (dry mucous membranes) Respiratory (Brief) Respiratory: FOUND: clear all cowan, equal bilaterally Cardiovascular (Brief) Cardiac: FOUND: other (irregularly irregular), NOT FOUND: regular rate, regular rhythm Abdomen (Brief) Abdominal: FOUND: BS normo active x4, NOT FOUND: distended Extremities (Brief) Extremity : Side: Bilateral Extremity: leg Extremity Finding: NOT FOUND: edema Musculoskeletal (Brief) Musculoskeletal: NOT FOUND: deformity Integumentary (Brief) Integumentary: FOUND: dry Psychiatric (Brief) Psychiatric: FOUND: other (when he is awake, he is alert to self only.) Laboratory Laboratory Laboratory Tests 01/05/17 14:20 Sepsis Diagnostic Criteria Sepsis Confirmed/Suspected Infection: No Assessment & Plan Problems: (1) New onset atrial fibrillation Status: Acute (2) Anorexia Status: Acute (3) Hypotension Status: Resolved (4) Behavior disturbance Status: Acute (5) Dementia Status: Chronic Plan/Intensity of Service Hypotension has improved. Oral intake appears to be improving. BMP checked on 01/05/17 was essentially stable. Heart rate remains irregular, occasionally borderline tachycardic. Would appreciate clarification on goals of care from the patient's . Psychiatric progress notes reviewed. Code Status Do Not Resuscitate Hospital Course Summary Disclaimer The hospital course summary below is not to be considered part of the above Progress Note. Hospital Course Summary 01/03/17 Dr Spaulding continues to work on behavior treatment. Goal is to keep both patient and staff safe Lipid panel reviewed, Hgb A1c on admission 5.4 Have asked nursing staff to call PCP office Dr Dolan from [place], [place] to obtain further PMH Otherwise is medically stable 01/05/17 Concerned because of essentially no oral intake, poor communication, frequent hallucinations, incontinence, ineffective ambulation, and reliance on staff for all cares. Pt's clinical condition is consistent with end-stage dementia, and hospice consult would be appropriate. Will check BMP d/t poor oral intake - may give IVF. Also hypotensive - could be hypovolemia secondary to dehydration. Nsg staff and Dr. Guevara plan on discussing goals of care with family today. Nsg staff does not believe that the patient would tolerate an IV well. 01/07/17 Hypotension has improved. Oral intake appears to be improving. BMP checked on 01/05/17 was essentially stable. Heart rate remains irregular, occasionally borderline tachycardic. Would appreciate clarification on goals of care from the patient's . Psychiatric progress notes reviewed. GILDA KURTZ APRN Jan 07, 2017 08:29
[2017-01-07 08:55] VITALS: BP 115/56; PULSE 84; RESP 12; TEMP 97.3; O2SAT 95
[2017-01-07] MEDS: POLYETHYL.GLYCOL 3350 PACKET 17gm PO SCH (09:00)
[2017-01-07 09:18] VITALS: PULSE 84; RESP 12
--- NOTE | 2017-01-07 10:07 | NUR ---
ASSET PROTECTION GREETER Pt. did not sleep well overnight and is still in bed this morning. The severity of his dementia makes him a poor candidate to participate in psychoeducational group facilitated by [facility].
[2017-01-07] MEDS: RIVASTIGMINE PATCH REMOVAL TD SCH (10:39)
[2017-01-07] MEDS: RIVASTIGMINE 4.6 MG/24 HR PATCH TD SCH (10:39)
[2017-01-07] MEDS: DIVALPROEX SPRINKLE 125 MG CAPSULE PO SCH ×3 (12:27→21:00)
[2017-01-07] MEDS: MULTIVITAMIN PLAIN TABLET PO SCH (12:27)
[2017-01-07] MEDS: FAMOTIDINE 20 MG TABLET PO SCH (12:27)
--- NOTE | 2017-01-07 12:27 | NUR ---
AM status PT only slept 1.75 hours. Pt turned and mouth care provided, made sure heals off the bed and Pt incontinent, see output. Pt assisted at 1215 to get out of bed, Pt starting to move and awaken. Pt assist x 2 out of bed to recliner with chair cushion. Pt assisted with food, able to feed self but needing constant queing and encouragement. Pt ate only 25 % of lunch, didn't eat breakfast. AM meds; depakote, pepcid and multivitamin given po at this time. Pt exelon patch put on earlier today. Will continue to monitor. Pt in no acute distress.
[2017-01-07] MEDS ORDERED: ACETAMINOPHEN 325 MG TABLET PO PRN (14:00)
--- NOTE | 2017-01-07 15:16 | NUR ---
LEARNING CONSULTANT--FAMILY CONTACT LSW spoke with both pt's son, Laurent, and pt's , Sana. They were wanting updates on pt's status. Reviewed notes from over the weekend, including the concern about wanting clarification from family regarding the intensity of future treatment. Advised family that Dr. Alfaro will be contacting them to discuss pt's current medical and psychiatric condition. wanted to make sure hospital staff know pt is to be DNR and that he has a Living Will. She also wants staff to know that she wants to be called immediately if he would ever take a turn for the worse. They will wait to hear from Dr. Alfaro.
[2017-01-07] MEDS: LORAZEPAM INTENSOL 1mg/0.5ml ORAL SOLUTION SL PRN (15:55)
--- NOTE | 2017-01-07 15:55 | NUR ---
PRN ativan Pt given PRN tylenol for adv dementia pain assessment of 3, 1-2 hours later Pt increasing in restlesness and pacing. Pt going up and down hallway. Pt not threatening and not purposely aggressive, Pt taken to the bathroom several times and eventually had large BM. Pt continued to get more restless and increase in pacing. Pt starting tactile hallucinations, moving fingers around if having something in it, and leaving it the chair. Pt is starting to say "I'm gonna kill him." And attempting to sit down on things that aren't meant to sit on ie wheelchair wheel, table. Pt given SL ativan 1mg at this time. Pt has needed extra care during this time. Pt started the pacing at 1300, and was in bed from [id number]; and right back up. Pt in no acute distress. Will continue to monitor.
[2017-01-07 18:28] VITALS: BP 117/75; PULSE 103; RESP 16; TEMP 98; O2SAT 95
--- NOTE | 2017-01-07 18:28 | NUR ---
DRY CLEANING MANAGER--FAMILY CONTACT [facility] made phone call to pt's , Sana, after consulting with Dr. Alfaro. Family meeting is scheduled for 01/09/17 at 1500.
--- NOTE | 2017-01-07 18:52 | NUR ---
Summary: Pt slept 5.5 hours this shift Pt is A/O to self only. Pt has had hallucinations today tactile and visual. Pt got up from toilet and looked at the floor and had afraid look on face and started backing away. Oriented Pt that there was nothing on the floor and foot put in place where eyes were. Pt blinking and able to move forward and out of the bathroom. Pt did take medications crushed in 1 bite of ice cream, Pt wanted to spit out 2nd bite of non-med ice cream; but didn't. Pt has been up ambulating for approx 1-2 hours today; and has slept 5.5 hours, this shift. Pt has had some verbal aggression about other flight ideas, "I'm gonna kill that son of bitjade, " but not threatening to staff or other Pt's. Pt has had physical aggression when attempting to toilet or have Pt go where he didn't want too. Pt needing extra care while up and ambulating with gait belt, non skid socks on. Pt is usually 1 assist until getting tired and then becomes 2 assist. Will continue to monitor.
[2017-01-07] MEDS: CLONAZEPAM 0.5 MG TABLET PO SCH ×2 (20:09→21:00)
[2017-01-07] MEDS: DONEPEZIL PO SCH ×2 (20:11→22:52)
[2017-01-07] MEDS: MEMANTINE PO SCH ×2 (20:11→22:52)
[2017-01-07] MEDS: LORAZEPAM 0.5 MG TABLET PO PRN ×2 (20:12→22:53)
[2017-01-07] MEDS: LORAZEPAM 2 MG/ML INJECTION IM PRN (21:10)
[2017-01-07 21:29] VITALS: PULSE 84; RESP 12
--- NOTE | 2017-01-07 21:34 | NUR ---
PRN: Patient was given Ativan 1mg IM at 2120. Patient uncooperative with cares, Grabbing, scratching, spitting and cussing. Attempted to give patient evening medications crushed in pudding and patient spit medications out.
[2017-01-07 22:08] VITALS: BP 109/79; PULSE 105; RESP 18; TEMP 97; O2SAT 97
--- NOTE | 2017-01-07 23:11 | NUR ---
Medication PRN F/U- 2229- Patient had PRN 1mg Ativan IM at 2119. Patient continues to be restless. Pulling his pants off his legs. Trying to get out of bed. Mumbling. Will continue to monitor.
--- NOTE | 2017-01-07 23:36 | GENPN ---
Generations Subjective Date DATE: 01/07/17 TIME: 23:18 Subjective/Severity of Illness Medications Current Medications Medications (Trade) Dose Ordered Sig/Gomez Start Time Stop Time Status Last Admin Dose Admin Miscellaneous Medication (May use PRN orders) 1 PRN PRN 12/31/16 18:30 Haloperidol (Haldol) 0.5 mg Q6H PRN 12/31/16 18:30 12/31/16 19:51 DC Lorazepam (Ativan) 0.5 mg Q6H PRN 12/31/16 18:30 12/31/16 19:51 DC Lorazepam (Ativan) 0.5 mg Q6H PRN 12/31/16 18:30 12/31/16 19:51 DC Haloperidol Lactate (Haldol 5 Mg/ml Inj) 0.5 mg Q6H PRN 12/31/16 18:30 12/31/16 19:51 DC Donepezil HCl (Aricept) 10 mg HS 12/31/16 21:00 01/01/17 08:57 DC 12/31/16 21:07 10 MG Famotidine (Pepcid) 20 mg DAILY 01/01/17 09:00 01/07/17 12:27 20 MG Memantine (Namenda) 10 mg HS 12/31/16 21:00 01/01/17 08:57 DC 12/31/16 21:07 10 MG Temazepam (Restoril) 15 mg HS PRN 12/31/16 18:30 01/01/17 20:50 DC Memantine (Namenda) 5 mg DAILY 01/01/17 09:00 01/01/17 09:00 DC Haloperidol (Haldol) 2 mg Q6H PRN 01/01/17 00:30 01/01/17 17:29 DC 12/31/16 21:07 2 MG Haloperidol Lactate (Haldol 5 Mg/ml Inj) 2 mg Q6H PRN 01/01/17 00:30 01/02/17 17:17 DC Lorazepam (Ativan) 1 mg Q6H PRN 01/01/17 00:30 01/05/17 10:38 1 MG Lorazepam (Ativan) 1 mg Q6H PRN 01/01/17 00:30 01/07/17 21:10 1 MG Clonazepam (Klonopin) 0.5 mg HS 12/31/16 21:00 01/05/17 19:56 0.5 MG Naproxen Sodium (ALEVE 220 mg) 220 mg BIDWM PRN 12/31/16 20:30 Multivitamins Therapeutic (Theragran) 1 tab DAILY 01/01/17 09:00 01/07/17 12:27 1 TAB Memantine (Namenda) 10 mg BID 01/20/17 21:00 Memantine (Namenda) 5 mg BID 01/20/17 21:00 Donepezil HCl (Aricept) 10 mg HS 01/20/17 21:00 01/20/17 21:00 DC Olanzapine (Zyprexa Zydis) 5 mg HS 01/01/17 21:00 01/02/17 17:17 DC 01/01/17 19:52 5 MG Olanzapine (ZYPREXA 2.5 mg) 2.5 mg Q6HR PRN 01/01/17 17:30 01/02/17 17:17 DC 01/02/17 15:34 2.5 MG Donepezil HCl (Aricept) 5 mg HS 01/20/17 21:00 Rivastigmine Tartrate (Exelon) 1.5 mg BID 01/03/17 09:00 01/03/17 09:00 DC Rivastigmine Tartrate (Exelon Patch) 4.6 mg DAILY 01/03/17 09:00 01/07/17 10:39 4.6 MG Rivastigmine Tartrate (Exelon Patch Removal) 1 removal DAILY 01/04/17 09:00 01/07/17 10:39 1 REMOVAL Lorazepam (Ativan Intensol) 1 mg Q6H PRN 01/04/17 13:00 01/07/17 15:55 1 MG Divalproex Sodium (Depakote Sprinkle) 125 mg BID 01/04/17 21:00 01/07/17 12:27 125 MG Magnesium Hydroxide (Mom) 30 ml DAILY PRN 01/06/17 14:45 01/06/17 15:15 30 ML Polyethylene Glycol (Miralax) 17 g DAILY 01/06/17 14:45 01/06/17 14:45 17 G Bisacodyl (Dulcolax) 10 mg DAILY PRN 01/06/17 14:45 01/06/17 16:28 10 MG Acetaminophen (Tylenol Regular Strength) 650 mg Q5H PRN 01/07/17 14:00 01/07/17 13:56 650 MG Subjective Patient seen ,chart reviewed and vitals noted to be stable. Patient was seen to be in the dinning and appears to be confused and disoriented to time, place and person. His speech is mumbled and often talks to himself. Staff reports that his gait has been unsteady and he often tries to move himself but he requires assistance for any ambulation. Patient required Lorazepam 0.5mg at about 1555 this afternoon. Patient is currently on Namenda 15mg BID,Donepezil 5mg q hs, Depakote 125mg BID and Rivastigmine 4.6mg 1 daily. Time of Service: 18:00 Start Time: 18:00 Stop Time: 18:15 Care >50% of this visit spent in counseling/coordination care. Generations Exam Vitals Vital Signs Date Time Temp Pulse Resp B/P Pulse Ox O2 Delivery O2 Flow Rate FiO2 01/07/17 22:08 97.0 105 18 109/79 97 Room Air Physical examination performed by the hospitalist. Height (Feet): 5 Height (Inches): 11.00 Mental Status Exam Muscle Strength/Tone: Weak Dressing: Casual Grooming: Fair Attitude: Uncooperative Motor Activity: Agitation Eye Contact: Poor Speech: Other (incoherent) Volume: Soft Rhythm: Mumbled, Paucity of Language Sensory: Alert Orientation: Disoriented to time, Disoriented to person, Disoriented to place, Disoriented to situation Mood: Anxious Affect: Exaggerated Thought Organization: Disorganized, Tangential Associations: Loose-associations Abstract Reasoning: Impaired, concrete Computation: Poor Computation Thought Content: Delusions Perception/Psychotic: Psychotic Attention Span/Concentration: Short Span Language: [place] Impaired Fund of Knowledge: Poor fund of knowledge Memory: Poor-immediate, Poor-recent, Poor-remote Suicidal Ideation: None Homicidal Ideation: None Insight: Poor Judgment: Poor Impulse Control: Poor Assessment and Plan (1) Major neurocognitive disorder Assessment: with behavioral disturbance History of Alzheimer's dementia, Lewy Body dementia suspected Plan: 01/02/17: Plan to cross-taper Aricept with Rivastigmine, which has been shown to be more helpful with behavioral disturbance in LBD. Will discontinue olanzapine.. Consider retrial of antipsychotic pending patient's behavior. 01/03/17: Started Exelon patch 4.2mg/24 hours in AM on 01/03, consider trial of Depakote (decided during discussion with family). 01/04/17 Depakote 125mg PO BID 01/05/17 Continue current care 01/06/17 Continue current care 01/07/17: Cont current . Family meeting on Saturday01/09/17 (2) New onset atrial fibrillation Assessment: Rate-controlled, outpatient echocardiogram recommended Cont. current psych. meds ONEIDA JAIMES MD Jan 07, 2017 23:32
[2017-01-08] MEDS: DONEPEZIL PO SCH ×2 (03:32→03:34)
[2017-01-08] MEDS: MEMANTINE PO SCH ×2 (03:32→03:34)
--- NOTE | 2017-01-08 06:55 | NUR ---
Summary: Patient was incontinent of both bowel and urine tonight. He was agitated at bedtime, scratching, cussing, taking his clothes off and spitting. Patient was offered evening medications, which were crushed and placed in pudding. Patient tried to spit at nurse. Patient was given 1mg Ativan IM at 2120, but patient rarely slept tonight. He was talking to himself, asking for guns and a knife and pointing at things in his room. Continue to monitor.
[2017-01-08] MEDS: DIVALPROEX SPRINKLE 125 MG CAPSULE PO SCH ×3 (07:58→20:28)
[2017-01-08] MEDS: FAMOTIDINE 20 MG TABLET PO SCH (07:59)
[2017-01-08] MEDS: MULTIVITAMIN PLAIN TABLET PO SCH (07:59)
[2017-01-08] MEDS: POLYETHYL.GLYCOL 3350 PACKET 17gm PO SCH (07:59)
[2017-01-08 08:00] VITALS: PULSE 103; RESP 18
[2017-01-08] MEDS: RIVASTIGMINE PATCH REMOVAL TD SCH (08:01)
[2017-01-08] MEDS: RIVASTIGMINE 4.6 MG/24 HR PATCH TD SCH (08:01)
[2017-01-08 08:11] VITALS: BP 104/78; PULSE 103; RESP 18; TEMP 97; O2SAT 98
--- NOTE | 2017-01-08 12:43 | NUR ---
STATUS Pt is AO x 1, Pt took a shower this morning with staff assistance, speech is mumble and it does not make sense at times. Pt only took bites of his breakfast, he walked down the [address] way and dining room with staff assistance, Pt has a unsteady gait, he was exit seeking. Talking while he is sitting in the recliner with his eyes close. Pt has been having visual hallucinations. picking at the floor for unseen things. pt has not been aggressive, he has been out in the day room most of the morning. He ate 25% of lunch. Pt was incontinent of urine this morning. Pt has flat affect, does not smile. he is currently sitting in the day room, staff is near by, will continue to monitor for needs or concerns.
--- NOTE | 2017-01-08 13:36 | NUR ---
EMERGENCY DOCTOR Pt. has been sitting in a recliner in the day room for most of the morning. His eyes are often closed but he is mumbling and appears to be responding to visual hallucinations as he reaches out his arms to chart picker things. Pt. has not demonstrated any positive results from participation in psychoeducational group facilitated by [facility]. Music was played for another patient in the day room without any sign that the patient was aware of his surroundings.
--- NOTE | 2017-01-08 15:55 | NUR ---
FOREIGN EXCHANGE STUDENT COORDINATOR--PM GROUP Pt. was in his room resting in bed and did not participate in psychosocial group facilitated by [facility].
[2017-01-08 16:00] VITALS: BP 128/69; PULSE 105; RESP 18; TEMP 97.4; O2SAT 96
[2017-01-08 18:02] VITALS: BP 128/69; PULSE 109; RESP 18; TEMP 97.4; O2SAT 96
--- NOTE | 2017-01-08 18:56 | NUR ---
SUMMARY Pt Is AO x 1. Pt took his medications with out problems today, speech is mumble and disorganized, flat affect, does not smile, Pt was restless and combative during evening cares, he was trying to kick, and hit staff, Pt needed assistance of 2 during cares, he was calling staff "bitches, go Fuck your self." Pt was incontinent of urine today, he has unsteady gait and needs assistance of 1-2 with a gait belt during ambulation. Pt has been constant visual observation while awake. Pt did not complain of pain today, NO PRN medications given this shift. Pt was in the recliner this morning, he was sitting with his eyes close and talking, Pt has been trying to get out of bed and recliner without assistance. Pt has been cursing several times this shift. He has been restless, agitated, combative, and exit seeking. He though he was in a car this morning saying go park over there, he also tried to take his close off while he was on the day room. Pt is currently in the day room, staff is near by.
[2017-01-08] MEDS: CLONAZEPAM 0.5 MG TABLET PO SCH ×2 (19:19→20:30)
--- NOTE | 2017-01-08 19:33 | GENPN ---
[facility] Subjective Date DATE: 01/08/17 TIME: 19:21 Subjective/Severity of Illness Medications Current Medications Medications (Trade) Dose Ordered Sig/Gomez Start Time Stop Time Status Last Admin Dose Admin Miscellaneous Medication (May use PRN orders) 1 PRN PRN 12/31/16 18:30 Haloperidol (Haldol) 0.5 mg Q6H PRN 12/31/16 18:30 12/31/16 19:51 DC Lorazepam (Ativan) 0.5 mg Q6H PRN 12/31/16 18:30 12/31/16 19:51 DC Lorazepam (Ativan) 0.5 mg Q6H PRN 12/31/16 18:30 12/31/16 19:51 DC Haloperidol Lactate (Haldol 5 Mg/ml Inj) 0.5 mg Q6H PRN 12/31/16 18:30 12/31/16 19:51 DC Donepezil HCl (Aricept) 10 mg HS 12/31/16 21:00 01/01/17 08:57 DC 12/31/16 21:07 10 MG Famotidine (Pepcid) 20 mg DAILY 01/01/17 09:00 01/08/17 07:59 20 MG Memantine (Namenda) 10 mg HS 12/31/16 21:00 01/01/17 08:57 DC 12/31/16 21:07 10 MG Temazepam (Restoril) 15 mg HS PRN 12/31/16 18:30 01/01/17 20:50 DC Memantine (Namenda) 5 mg DAILY 01/01/17 09:00 01/01/17 09:00 DC Haloperidol (Haldol) 2 mg Q6H PRN 01/01/17 00:30 01/01/17 17:29 DC 12/31/16 21:07 2 MG Haloperidol Lactate (Haldol 5 Mg/ml Inj) 2 mg Q6H PRN 01/01/17 00:30 01/02/17 17:17 DC Lorazepam (Ativan) 1 mg Q6H PRN 01/01/17 00:30 01/05/17 10:38 1 MG Lorazepam (Ativan) 1 mg Q6H PRN 01/01/17 00:30 01/07/17 21:10 1 MG Clonazepam (Klonopin) 0.5 mg HS 12/31/16 21:00 01/05/17 19:56 0.5 MG Naproxen Sodium (ALEVE 220 mg) 220 mg BIDWM PRN 12/31/16 20:30 Multivitamins Therapeutic (Theragran) 1 tab DAILY 01/01/17 09:00 01/08/17 07:59 1 TAB Memantine (Namenda) 10 mg BID 01/20/17 21:00 Memantine (Namenda) 5 mg BID 01/20/17 21:00 Donepezil HCl (Aricept) 10 mg HS 01/20/17 21:00 01/20/17 21:00 DC Olanzapine (Zyprexa Zydis) 5 mg HS 01/01/17 21:00 01/02/17 17:17 DC 01/01/17 19:52 5 MG Olanzapine (ZYPREXA 2.5 mg) 2.5 mg Q6HR PRN 01/01/17 17:30 01/02/17 17:17 DC 01/02/17 15:34 2.5 MG Donepezil HCl (Aricept) 5 mg HS 01/20/17 21:00 Rivastigmine Tartrate (Exelon) 1.5 mg BID 01/03/17 09:00 01/03/17 09:00 DC Rivastigmine Tartrate (Exelon Patch) 4.6 mg DAILY 01/03/17 09:00 01/08/17 08:01 4.6 MG Rivastigmine Tartrate (Exelon Patch Removal) 1 removal DAILY 01/04/17 09:00 01/08/17 08:01 1 REMOVAL Lorazepam (Ativan Intensol) 1 mg Q6H PRN 01/04/17 13:00 01/07/17 15:55 1 MG Divalproex Sodium (Depakote Sprinkle) 125 mg BID 01/04/17 21:00 01/08/17 07:58 125 MG Magnesium Hydroxide (Mom) 30 ml DAILY PRN 01/06/17 14:45 01/06/17 15:15 30 ML Polyethylene Glycol (Miralax) 17 g DAILY 01/06/17 14:45 01/08/17 07:59 17 G Bisacodyl (Dulcolax) 10 mg DAILY PRN 01/06/17 14:45 01/06/17 16:28 10 MG Acetaminophen (Tylenol Regular Strength) 650 mg Q5H PRN 01/07/17 14:00 01/07/17 13:56 650 MG Subjective Patient seen ,chart reviewed and vitals noted to be stable. Patient was seen to be in his bed and appears to be confused and disoriented to time, place and person. His speech is mumbled and often talks to himself. He was seen gesticulating with his hand with poor language and unable to sustain attention.. Staff reports that his gait has been unsteady , had incontinence of urine and bowel. He often tries to be exit seeking . There is visual and auditory hallucinations . Patient is currently on Namenda 15mg BID,Donepezil 5mg q hs, Depakote 125mg BID and Rivastigmine 4.6mg 1 daily. Called and discussed stopping one cholinesterase inhibitor due patient incontinence, but she would like to wait and make that decision during the family meeting tomorrow. Sleep: 3 hours PRN: Lorazepam 1mg Time of Service: 16:45 Start Time: 16:45 Stop Time: 17:00 Care >50% of this visit spent in counseling/coordination care. [facility] Exam Vitals Vital Signs Date Time Temp Pulse Resp B/P Pulse Ox O2 Delivery O2 Flow Rate FiO2 01/08/17 18:02 97.4 109 18 128/69 96 Room Air Physical examination performed by the hospitalist. Height (Feet): 5 Height (Inches): 11.00 Mental Status Exam Muscle Strength/Tone: Weak Dressing: Casual Grooming: Disheveled Attitude: Tense Motor Activity: Tremors Eye Contact: Poor Speech: Other (incoherent') Volume: Soft Rhythm: Mumbled, Paucity of Language Sensory: Alert Orientation: Disoriented to time, Disoriented to person, Disoriented to place, Disoriented to situation Mood: Anxious Affect: Blunted Rate of Thoughts: Delayed Thought Organization: Tangential Associations: Loose-associations Abstract Reasoning: Impaired, concrete Computation: Poor Computation Thought Content: Delusions Perception/Psychotic: Psychotic Current Hallucinations: Visual Attention Span/Concentration: Inattentive Language: Naming Impaired Memory: Poor-immediate, Poor-recent, Poor-remote Suicidal Ideation: None Homicidal Ideation: None Insight: Poor Judgment: Poor Impulse Control: Poor Assessment and Plan (1) Major neurocognitive disorder Assessment: with behavioral disturbance History of Alzheimer's dementia, Lewy Body dementia suspected Plan: 01/02/17: Plan to cross-taper Aricept with Rivastigmine, which has been shown to be more helpful with behavioral disturbance in LBD. Will discontinue olanzapine.. Consider retrial of antipsychotic pending patient's behavior. 01/03/17: Started Exelon patch 4.2mg/24 hours in AM on 01/03, consider trial of Depakote (decided during discussion with family). 01/04/17 Depakote 125mg PO BID 01/05/17 Continue current care 01/06/17 Continue current care 01/07/17: Cont current . Family meeting on Saturday01/09/17 (2) New onset atrial fibrillation Assessment: Rate-controlled, outpatient echocardiogram recommended Cont. current psych. meds ONEIDA JAIMES MD Jan 08, 2017 19:30
[2017-01-08 20:00] VITALS: PULSE 103; RESP 18
[2017-01-09 00:17] VITALS: BP 147/83; PULSE 77; RESP 15; TEMP 96.8; O2SAT 94
--- NOTE | 2017-01-09 03:25 | NUR ---
Status: Patient did not take evening medications. Went to bed, and has slept quietly so far. In bed with alarm on and will continue to monitor.
--- NOTE | 2017-01-09 06:19 | NUR ---
Summary: Patient up in day room, in recliner when this RN first arrived on shift. Medications prepared by crushing and putting in chocolate pudding, but patient refused any medications. He asked to go bed. Patient slept all night. Was awoke by staff at 0600 due to incontinence and was changed along with new bedding. Patient was combative during the change, but as soon as they were done, patient went right back to sleep. Patient required no PRN's this shift. He displayed hallucinations and was picking at things. Patient is in bed with bed rails up x3 and bed alarm on. Will continue to monitor.
[2017-01-09 07:59] VITALS: BP 119/79; PULSE 80; RESP 18; TEMP 97.2; O2SAT 97
[2017-01-09] MEDS: FAMOTIDINE 20 MG TABLET PO SCH (08:56)
[2017-01-09] MEDS: DIVALPROEX SPRINKLE 125 MG CAPSULE PO SCH ×2 (08:56→18:46)
[2017-01-09] MEDS: RIVASTIGMINE 4.6 MG/24 HR PATCH TD SCH ×2 (08:56→09:00)
[2017-01-09] MEDS: POLYETHYL.GLYCOL 3350 PACKET 17gm PO SCH (08:57)
[2017-01-09] MEDS: MULTIVITAMIN PLAIN TABLET PO SCH (08:57)
[2017-01-09] MEDS: RIVASTIGMINE PATCH REMOVAL TD SCH (09:00)
--- NOTE | 2017-01-09 11:07 | NUR ---
status pt alert and oriented to himself only. would not eat breakfast. many attempts made to get him t eat. medication crushed and put in his coffee. pt drank 3/4 of his coffee and then spilled it. pt up and walks the [place] with 2 staff and a gait belt. has no direction. unable to be directed. has visual hallucinations, picks at the johnson and floor. uses his hands to pull like string through his fingers. speech is garbled and word salad.
--- NOTE | 2017-01-09 14:03 | NUR ---
CANCER PROGRAM COORDINATOR--FAMILY CONTACT [facility] met with pt's , Sana, and two sons, Orlando and Petey. MARY Heard, joined the meeting and explained pt's current medications. Family was advised that LOVELY Love, would be down later to answer any medical questions they had and Dr. Alfaro will meet with them at 1500. The family is aware that one of the recommendations make by Dr. Carmona is that family consider hospice support once pt. discharges. They asked how that process works and if pt. stays at the hospital. This SW explained that the facility of their choice would be contacted for consideration of placement for end of life care with hospice support. Advised that the CM would help coordinate discharge arrangements, including transport. Family also report they met with an business attorney and are going to begin process of Division of Assets. The business attorney will help with medicaid application when necessary.
--- NOTE | 2017-01-09 14:49 | NUR ---
summary pt continued to be restless most of shift. pt only had bites for lunch. no prn medication given up to this point. pt has been a sleep for a while. family here for meeting with the doctor.
--- NOTE | 2017-01-09 16:00 | NUR ---
GRAIN II FARMWORKER--FAMILY MEETING Dr. Alfaro, Lead Customer Service Representative, Quin (RN), and [facility] met with pt's (Sana) and two sons (Petey and Orlando) for family meeting. Dr. Alfaro reviewed results of any medical testing done on the unit. He discussed medications that had been tried and explained options for further treatment of pt's psychiatric symptoms. The gave comprehensive history of pt's decline with symptoms of dementia. Family was united in their decision to stop further aggressive treatment to try and manage the psychosis. They stated they were confident in knowing that pt. would not find any value in his life due to the distressing psychosis he is experiencing. Family asked that focus of treatment be changed to palliative care. They would like CM to look for placement at [facility] in [place] and that hospice care be arranged for support.
--- NOTE | 2017-01-09 16:22 | NUR ---
JUAQUIN REZA VISITED WITH PT FAMILY REGARDING D/C PLAN. FAMILY WOULD LIKE PT TO D/C TO [facility] IN [place], [place]. THEY WOULD LIKE PT TO USE THE HOSPICE THAT FACILITY USES WHICH IS [facility]. JUAQUIN MADE REFERRAL AND SPOKE WITH KOTA FROM [facility]. FAMILY IS AWARE TO CONTACT CM IF NEEDS ARISE.
[2017-01-09 16:59] VITALS: BP 110/79; PULSE 102; RESP 16; TEMP 97.2; O2SAT 96
--- NOTE | 2017-01-09 18:07 | PNPDOC ---
Subjective Date DATE: 01/09/17 TIME: 18:03 Subjective Mr. Bass was seen in the day room with his sons and . Nursing reports that his oral intake has been variable but generally poor. His indicated he 's had weight loss prior to hospitalization and that duration of atrial fibrillation is unknown but was only recently identified when he was hospitalized at an outside facility. Patient had mumbled speech and did not answer questions in a meaningful manner. Objective Vital Signs Vital signs Vital Signs Date Time Temp Pulse Resp B/P Pulse Ox O2 Delivery O2 Flow Rate FiO2 01/09/17 16:59 97.2 102 16 110/79 96 Room Air NAD, regards examiner, disheaveled Irregular cardiac rhythm, S1 and S2 Abdomen soft, breath sounds clear Moving upper extremities well/spontaneously Height (Feet): 5 Height (Inches): 11.00 Weight (Kilograms): 75.500 Sepsis Diagnostic Criteria Sepsis Confirmed/Suspected Infection: No Assessment & Plan Problems: (1) New onset atrial fibrillation Status: Acute (2) Anorexia Status: Acute (3) Hypotension Status: Resolved (4) Behavior disturbance Status: Acute (5) Dementia Status: Chronic Assessment Anorexia in conjunction with weight loss discussed with the patient's . I advised her that feeding tube could be considered but that there are risks to feeding tube placement in patients with advanced dementia. She indicated that she did not feel her would want a feeding tube and that family has decided to pursue comfort-based care and hospice after talking with staff earlier today and case management. Blood pressure and heart rate stable. No additional recommendations at this time. Code Status Do Not Resuscitate Hospital Course Summary Disclaimer The hospital course summary below is not to be considered part of the above Progress Note. Hospital Course Summary 01/03/17 Dr Spaulding continues to work on behavior treatment. Goal is to keep both patient and staff safe Lipid panel reviewed, Hgb A1c on admission 5.4 Have asked nursing staff to call PCP office Dr Dolan from [place], [place] to obtain further PMH Otherwise is medically stable 01/05/17 Concerned because of essentially no oral intake, poor communication, frequent hallucinations, incontinence, ineffective ambulation, and reliance on staff for all cares. Pt's clinical condition is consistent with end-stage dementia, and hospice consult would be appropriate. Will check BMP d/t poor oral intake - may give IVF. Also hypotensive - could be hypovolemia secondary to dehydration. Ns staff and Dr. Guevara plan on discussing goals of care with family today. Nsg staff does not believe that the patient would tolerate an IV well. 01/07/17 Hypotension has improved. Oral intake appears to be improving. BMP checked on 01/05/17 was essentially stable. Heart rate remains irregular, occasionally borderline tachycardic. Would appreciate clarification on goals of care from the patient's . Psychiatric progress notes reviewed. LUDIN PAULSON MD Jan 09, 2017 18:06
--- NOTE | 2017-01-09 18:29 | NUR ---
Status/Summary Patient is asleep in his room when this RN assumed care at 1500; family is present on the unit meeting with the doctor, HAM, computer programming professor and tower climber. During family presence patient is restless, walking in the day room without clear direction, picking at unseen things on the floor or in the air. He requires assistance of 2 staff members and gait belt as he is very unsteady - walking sideways or sometimes backwards. He napped for a short time (45 minutes) during supper. He is up walking the day room right now with a sandwich in his hand
[2017-01-09] MEDS: CLONAZEPAM 0.5 MG TABLET PO SCH (18:46)
--- NOTE | 2017-01-09 19:28 | GENPN ---
[facility] Subjective Date DATE: 01/09/17 TIME: 19:04 Subjective/Severity of Illness Medications Current Medications Medications (Trade) Dose Ordered Sig/Gomez Start Time Stop Time Status Last Admin Dose Admin Miscellaneous Medication (May use PRN orders) 1 PRN PRN 12/31/16 18:30 Haloperidol (Haldol) 0.5 mg Q6H PRN 12/31/16 18:30 12/31/16 19:51 DC Lorazepam (Ativan) 0.5 mg Q6H PRN 12/31/16 18:30 12/31/16 19:51 DC Lorazepam (Ativan) 0.5 mg Q6H PRN 12/31/16 18:30 12/31/16 19:51 DC Haloperidol Lactate (Haldol 5 Mg/ml Inj) 0.5 mg Q6H PRN 12/31/16 18:30 12/31/16 19:51 DC Donepezil HCl (Aricept) 10 mg HS 12/31/16 21:00 01/01/17 08:57 DC 12/31/16 21:07 10 MG Famotidine (Pepcid) 20 mg DAILY 01/01/17 09:00 01/09/17 08:56 20 MG Memantine (Namenda) 10 mg HS 12/31/16 21:00 01/01/17 08:57 DC 12/31/16 21:07 10 MG Temazepam (Restoril) 15 mg HS PRN 12/31/16 18:30 01/01/17 20:50 DC Memantine (Namenda) 5 mg DAILY 01/01/17 09:00 01/01/17 09:00 DC Haloperidol (Haldol) 2 mg Q6H PRN 01/01/17 00:30 01/01/17 17:29 DC 12/31/16 21:07 2 MG Haloperidol Lactate (Haldol 5 Mg/ml Inj) 2 mg Q6H PRN 01/01/17 00:30 01/02/17 17:17 DC Lorazepam (Ativan) 1 mg Q6H PRN 01/01/17 00:30 01/05/17 10:38 1 MG Lorazepam (Ativan) 1 mg Q6H PRN 01/01/17 00:30 01/07/17 21:10 1 MG Clonazepam (Klonopin) 0.5 mg HS 12/31/16 21:00 01/09/17 18:46 0.5 MG Naproxen Sodium (ALEVE 220 mg) 220 mg BIDWM PRN 12/31/16 20:30 Multivitamins Therapeutic (Theragran) 1 tab DAILY 01/01/17 09:00 01/09/17 08:57 1 TAB Memantine (Namenda) 10 mg BID 01/20/17 21:00 Memantine (Namenda) 5 mg BID 01/20/17 21:00 Donepezil HCl (Aricept) 10 mg HS 01/20/17 21:00 01/20/17 21:00 DC Olanzapine (Zyprexa Zydis) 5 mg HS 01/01/17 21:00 01/02/17 17:17 DC 01/01/17 19:52 5 MG Olanzapine (ZYPREXA 2.5 mg) 2.5 mg Q6HR PRN 01/01/17 17:30 01/02/17 17:17 DC 01/02/17 15:34 2.5 MG Donepezil HCl (Aricept) 5 mg HS 01/20/17 21:00 Rivastigmine Tartrate (Exelon) 1.5 mg BID 01/03/17 09:00 01/03/17 09:00 DC Rivastigmine Tartrate (Exelon Patch) 4.6 mg DAILY 01/03/17 09:00 01/09/17 09:00 4.6 MG Rivastigmine Tartrate (Exelon Patch Removal) 1 removal DAILY 01/04/17 09:00 01/09/17 09:00 1 REMOVAL Lorazepam (Ativan Intensol) 1 mg Q6H PRN 01/04/17 13:00 01/07/17 15:55 1 MG Divalproex Sodium (Depakote Sprinkle) 125 mg BID 01/04/17 21:00 01/09/17 18:46 125 MG Magnesium Hydroxide (Mom) 30 ml DAILY PRN 01/06/17 14:45 01/06/17 15:15 30 ML Polyethylene Glycol (Miralax) 17 g DAILY 01/06/17 14:45 01/09/17 08:57 17 G Bisacodyl (Dulcolax) 10 mg DAILY PRN 01/06/17 14:45 01/06/17 16:28 10 MG Acetaminophen (Tylenol Regular Strength) 650 mg Q5H PRN 01/07/17 14:00 01/07/17 13:56 650 MG Subjective Patient seen ,chart reviewed and vitals noted to be stable. Patient was seen in the company of his family continues to be confused and disoriented to time, place and person. His speech is mumbled and often talks to himself. He was seen gesticulating with his hand with poor language and unable to sustain attention.Staff reports that his gait has been unsteady , had incontinence of urine and bowel. He often tries to be exit seeking . There is visual and auditory hallucinations . Patient is currently on Namenda 15mg BID,Donepezil 5mg q hs, Depakote 125mg BID and Rivastigmine 4.6mg 1 daily. FAMILY MEETING: Met with patient's and two of his sons. reports that they first noticed change in his cognition in 2002 after patient lost his father. They noticed shuffling gait at first and later there was tremor, bradykinesia and postural instability. In 2012 patient was said to have been diagnosed with "dementia of Alzheimer" at the [facility] and was then started on Aricept. 2 years later Memantine was added to the regimen. Family reports that he once had a trial of Seroquel and did not respond to the treatment. Patient has had episode of wandering away from home and just about 1 week prior to presentation, he had an episode of such wandering and was found in a ditch. He was taken to a local ER where routine a CT was unremarkable, but an EKG showed Atrial fibrillation. The diagnosis of of major neurocognitive disorder possibly due to Parkinson's disease, Lewy body or even sub-cortical ischemia in the basal ganglia was discussed with patient's family. Given that patient has progressed to the point where is having difficulty swallowing and also incontinence, it was discussed with family about stopping his current medications. His family would like for patient to provided with only comfort at this point. Sleep: 8 hours Time of Service: 16:00 Start Time: 16:00 Stop Time: 16:45 Care >50% of this visit spent in counseling/coordination care. Generations Exam Vitals Vital Signs Date Time Temp Pulse Resp B/P Pulse Ox O2 Delivery O2 Flow Rate FiO2 01/09/17 16:59 97.2 102 16 110/79 96 Room Air Physical examination performed by the hospitalist. Height (Feet): 5 Height (Inches): 11.00 Mental Status Exam Muscle Strength/Tone: Weak Dressing: Casual Grooming: Disheveled Attitude: Uncooperative, Combative Motor Activity: Agitation Eye Contact: Poor Speech: Other (incoherent) Volume: Soft Rhythm: Mumbled, Paucity of Language Sensory: Alert Orientation: Disoriented to time, Disoriented to person, Disoriented to place, Disoriented to situation Mood: Anxious Affect: Exaggerated Rate of Thoughts: Delayed Thought Organization: Disorganized, Tangential Associations: Loose-associations Abstract Reasoning: Impaired, concrete Computation: Poor Computation Thought Content: Delusions Perception/Psychotic: Psychotic Current Hallucinations: Auditory Attention Span/Concentration: Inattentive Language: Naming Impaired Fund of Knowledge: Poor fund of knowledge Memory: Poor-immediate, Poor-recent, Poor-remote Suicidal Ideation: None Homicidal Ideation: None Insight: Poor Judgment: Poor Impulse Control: Poor Assessment and Plan (1) Major neurocognitive disorder Assessment: with behavioral disturbance History of Alzheimer's dementia, Lewy Body dementia suspected Plan: 01/02/17: Plan to cross-taper Aricept with Rivastigmine, which has been shown to be more helpful with behavioral disturbance in LBD. Will discontinue olanzapine.. Consider retrial of antipsychotic pending patient's behavior. 01/03/17: Started Exelon patch 4.2mg/24 hours in AM on 01/03, consider trial of Depakote (decided during discussion with family). 01/04/17 Depakote 125mg PO BID 01/05/17 Continue current care 01/06/17 Continue current care 01/07/17: Cont current . Family meeting on Saturday01/09/17 01/09/17: Discontinue Namenda, Donepezil, and Rivastigmine. Family would like to place patient in facility with hospice care. (2) New onset atrial fibrillation Assessment: Rate-controlled, outpatient echocardiogram recommended Cont. current psych. meds ONEIDA JAIMES MD Jan 09, 2017 19:23
[2017-01-09 19:58] VITALS: BP 114/62; PULSE 61; RESP 15; TEMP 98.4; O2SAT 98
[2017-01-09 20:58] VITALS: PULSE 61; RESP 15
--- NOTE | 2017-01-09 22:11 | NUR ---
SHIFT SUMMARY PATIENT HAS BEEN IN BED SINCE BEGINNING OF SHIFT. HE HAS BEEN HAVING EPISODES OF SPITTING AND RESTLESSNESS. HE WAS COOPERATIVE IN TAKING HIS 2100 MEDS CRUSHED. HE CONTINUES TO HAVE VISUAL HALLUCINATIONS. PATIENT DID NOT HAVE ANYTHING PO DURING THIS 4 HOUR SHIFT. HE CONTINUES TO BE INCONTINENT OF URINE. HE STILL REQUIRES ASSISTANCE X2 WITH AMBULATION AND TRANSFER DUE TO BEING UNSTEADY AND WEAK. NO PRN MEDICATIONS GIVEN NOW. WILL CONTINUE TO MONITOR. PATIENT REMAINED IN BED WITH BED RAILS UP X2 AND BED ALARM ON .
[2017-01-09] MEDS: MEMANTINE PO SCH (23:19)
[2017-01-09] MEDS: DONEPEZIL PO SCH (23:19)
--- NOTE | 2017-01-10 06:45 | NUR ---
Chart Check 24 hour chart check completed
--- NOTE | 2017-01-10 06:46 | NUR ---
Summary Pt. slept 4.25 hours. Pt. is witnessed having visual and auditory hallucinations. Pt. is reaching out for unseen things. Pt. also is having conversations with himself. Pt. is incontinent of urine. Pt. needs a complete linen change. Pt. does not strike out at staff during hygiene cares. Pt. does grab and hold onto staff hands or arms with a firm housetrailer servicer. Pt. is makes disorganized statements, I need to get to congregational to throw some people out. Pt. also makes exit seeking comment, I need to go, go to my moms. Pt. is not verbally aggressive. No prn meds given. Pt. is resting in bed with the bed alarm activated and SR up x3.
[2017-01-10 08:00] VITALS: PULSE 93
[2017-01-10] MEDS: FAMOTIDINE 20 MG TABLET PO SCH (09:00)
[2017-01-10] MEDS: MULTIVITAMIN PLAIN TABLET PO SCH (09:00)
[2017-01-10] MEDS: RIVASTIGMINE PATCH REMOVAL TD SCH ×2 (09:00→10:10)
[2017-01-10 10:00] VITALS: BP 112/72; PULSE 111; TEMP 98
--- NOTE | 2017-01-10 10:06 | NUR ---
JUAQUIN REZA LEFT MESSAGE FOR KOTA AT [facility] THIS AM.
[2017-01-10] MEDS: DIVALPROEX SPRINKLE 125 MG CAPSULE PO SCH ×2 (10:12→19:29)
[2017-01-10] MEDS: POLYETHYL.GLYCOL 3350 PACKET 17gm PO SCH (10:12)
[2017-01-10] MEDS: MILK OF MAGNESIA 30 ML SUSP PO PRN (10:24)
[2017-01-10] MEDS: RIVASTIGMINE 4.6 MG/24 HR PATCH TD SCH (12:38)
--- NOTE | 2017-01-10 12:39 | NUR ---
CM CM RECEIVED CALL FROM KOTA AT [facility] STATING THAT THEY ARE DECLINING PT AT THIS TIME. CM SPOKE WITH PT SPOUSE AND DISCUSSED THAT [facility] HAS DECLINED REFERRAL. CM EXPLAINED PT CURRENT STATUS AND DISCUSSED FINANCIAL FOR LONG-TERM CARE WELL THE CURRENT STATUS OF INSURANCE. SPOUSE IS AWARE THAT A PEER TO PEER WAS REQUESTED FROM THE INSURANCE COMPANY. CM DID EXPLAIN THAT PROCESS AND THAT IT COULD TAKE 72 HOURS TO COMPLETE THE PEER TO PEER. SPOUSE IS AWARE THAT INSURANCE COULD DECIDE NOT TO CONTINUE TO PAY FOR STAY. SPOUSE IS AWARE THAT THE APPROXIMATE DAILY RATE IS $2,000 PER DAY. SPOUSE IS AWARE THAT CM WILL FOLLOW UP WITH HER AFTER CM TALKS WITH INSURANCE. SPOUSE AWARE TO CONTACT CM IF NEEDS ARISE.
[2017-01-10 16:46] VITALS: BP 129/80; PULSE 93; RESP 14; TEMP 98; O2SAT 95
--- NOTE | 2017-01-10 18:20 | NUR ---
Shift Summary Patient is asleep at the time of this RN's arrival at 0700; is awaken at 0930 by staff and assisted in to the shower. He is "mildly" resistive, pushes against staff but does not become physically aggressive or combative. He has difficulty following cues and direction but when given a washcloth he automatically starts washing his face and arms. Following the shower staff walked with patient for approximately 2 hours in the hallway - he wandered x1 in to anothers' room (other patient was out) but once he looked around staff were able to direct him back to the davenport. He has visual hallucinations - picking at the floor and acting as if he's throwing something from his hand. At noon he looked fatigued and allowed staff to help him lay in bed. For breakfast he ate a chocolate milk shake this RN made up for him with some MOM put in (no BM since 01/08), did not eat lunch, refused a second milk shake and ate a couple apple wedges with a few bites of hamburger this evening. When he is awake he walks in the daven[place] without clear direction; has mumbled speech and sometimes he'll say something then laugh. He has not been physically aggressive or combative this shift and is sitting with a staff member in the recliners at this time
--- NOTE | 2017-01-10 18:37 | GENPN ---
[facility] Subjective Date DATE: 01/10/17 TIME: 18:28 Subjective/Severity of Illness Medications Current Medications Medications (Trade) Dose Ordered Sig/Gomez Start Time Stop Time Status Last Admin Dose Admin Miscellaneous Medication (May use PRN orders) 1 PRN PRN 12/31/16 18:30 Haloperidol (Haldol) 0.5 mg Q6H PRN 12/31/16 18:30 12/31/16 19:51 DC Lorazepam (Ativan) 0.5 mg Q6H PRN 12/31/16 18:30 12/31/16 19:51 DC Lorazepam (Ativan) 0.5 mg Q6H PRN 12/31/16 18:30 12/31/16 19:51 DC Haloperidol Lactate (Haldol 5 Mg/ml Inj) 0.5 mg Q6H PRN 12/31/16 18:30 12/31/16 19:51 DC Donepezil HCl (Aricept) 10 mg HS 12/31/16 21:00 01/01/17 08:57 DC 12/31/16 21:07 10 MG Famotidine (Pepcid) 20 mg DAILY 01/01/17 09:00 01/09/17 08:56 20 MG Memantine (Namenda) 10 mg HS 12/31/16 21:00 01/01/17 08:57 DC 12/31/16 21:07 10 MG Temazepam (Restoril) 15 mg HS PRN 12/31/16 18:30 01/01/17 20:50 DC Memantine (Namenda) 5 mg DAILY 01/01/17 09:00 01/01/17 09:00 DC Haloperidol (Haldol) 2 mg Q6H PRN 01/01/17 00:30 01/01/17 17:29 DC 12/31/16 21:07 2 MG Haloperidol Lactate (Haldol 5 Mg/ml Inj) 2 mg Q6H PRN 01/01/17 00:30 01/02/17 17:17 DC Lorazepam (Ativan) 1 mg Q6H PRN 01/01/17 00:30 01/05/17 10:38 1 MG Lorazepam (Ativan) 1 mg Q6H PRN 01/01/17 00:30 01/07/17 21:10 1 MG Clonazepam (Klonopin) 0.5 mg HS 12/31/16 21:00 01/09/17 18:46 0.5 MG Naproxen Sodium (ALEVE 220 mg) 220 mg BIDWM PRN 12/31/16 20:30 Multivitamins Therapeutic (Theragran) 1 tab DAILY 01/01/17 09:00 01/09/17 08:57 1 TAB Memantine (Namenda) 10 mg BID 01/20/17 21:00 01/20/17 21:00 DC Memantine (Namenda) 5 mg BID 01/20/17 21:00 01/20/17 21:00 DC Donepezil HCl (Aricept) 10 mg HS 01/20/17 21:00 01/20/17 21:00 DC Olanzapine (Zyprexa Zydis) 5 mg HS 01/01/17 21:00 01/02/17 17:17 DC 01/01/17 19:52 5 MG Olanzapine (ZYPREXA 2.5 mg) 2.5 mg Q6HR PRN 01/01/17 17:30 01/02/17 17:17 DC 01/02/17 15:34 2.5 MG Donepezil HCl (Aricept) 5 mg HS 01/20/17 21:00 01/20/17 21:00 DC Rivastigmine Tartrate (Exelon) 1.5 mg BID 01/03/17 09:00 01/03/17 09:00 DC Rivastigmine Tartrate (Exelon Patch) 4.6 mg DAILY 01/03/17 09:00 01/10/17 10:10 DC 01/09/17 09:00 4.6 MG Rivastigmine Tartrate (Exelon Patch Removal) 1 removal DAILY 01/04/17 09:00 01/10/17 10:10 DC 01/10/17 10:10 1 REMOVAL Lorazepam (Ativan Intensol) 1 mg Q6H PRN 01/04/17 13:00 01/07/17 15:55 1 MG Divalproex Sodium (Depakote Sprinkle) 125 mg BID 01/04/17 21:00 01/10/17 10:12 125 MG Magnesium Hydroxide (Mom) 30 ml DAILY PRN 01/06/17 14:45 01/10/17 10:24 30 ML Polyethylene Glycol (Miralax) 17 g DAILY 01/06/17 14:45 01/10/17 10:12 17 G Bisacodyl (Dulcolax) 10 mg DAILY PRN 01/06/17 14:45 01/06/17 16:28 10 MG Acetaminophen (Tylenol Regular Strength) 650 mg Q5H PRN 01/07/17 14:00 01/07/17 13:56 650 MG Rivastigmine Tartrate (Exelon Patch) 4.6 mg DAILY 01/10/17 09:00 01/10/17 12:38 4.6 MG Rivastigmine Tartrate (Exelon Patch Removal) 1 removal DAILY 01/10/17 09:00 Subjective Patient seen ,chart reviewed and vitals noted to be stable. Patient was seen to be confused and disoriented to time, place and person. His speech is mumbled and often talks to himself. He was seen gesticulating with his hand with poor language and unable to sustain attention.Staff reports that his gait has been unsteady , had incontinence of urine . He continues to have tremors, shuffling bradykinesic gait and postural instability. He has poor insight and often tries to exit the unit. There is visual and auditory hallucinations . Patient is currently on Clonazepam 0.5mg q hs, Depakote 125mg BID and Rivastigmine 4.6mg 1 daily. Memantine and Donepezil were discontinued today. Patient appetite continues to be poor and was barely able to eat. Time of Service: 16:00 Start Time: 16:00 Stop Time: 16:15 Care >50% of this visit spent in counseling/coordination care. [facility] Exam Vitals Vital Signs Date Time Temp Pulse Resp B/P Pulse Ox O2 Delivery O2 Flow Rate FiO2 01/10/17 16:46 98.0 93 14 129/80 95 Room Air Physical examination performed by the hospitalist. Height (Feet): 5 Height (Inches): 11.00 Mental Status Exam Muscle Strength/Tone: Weak Dressing: Casual Grooming: Disheveled Attitude: Uncooperative Motor Activity: Agitation Eye Contact: Poor Speech: Slowed, Pressured Volume: Soft Rhythm: Mumbled, Paucity of Language Sensory: Alert Orientation: Disoriented to time, Disoriented to person, Disoriented to place, Disoriented to situation Mood: Neutral Affect: Exaggerated Rate of Thoughts: Delayed Thought Organization: Tangential Associations: Loose-associations Abstract Reasoning: Impaired, concrete Computation: Poor Computation Thought Content: Delusions Perception/Psychotic: Psychotic Attention Span/Concentration: Inattentive Language: Naming Impaired Fund of Knowledge: Poor fund of knowledge Memory: Poor-immediate, Poor-recent, Poor-remote Suicidal Ideation: None Homicidal Ideation: None Insight: Poor Judgment: Poor Impulse Control: Poor Assessment and Plan (1) Major neurocognitive disorder Assessment: with behavioral disturbance History of Alzheimer's dementia, Lewy Body dementia suspected Plan: 01/02/17: Plan to cross-taper Aricept with Rivastigmine, which has been shown to be more helpful with behavioral disturbance in LBD. Will discontinue olanzapine.. Consider retrial of antipsychotic pending patient's behavior. 01/03/17: Started Exelon patch 4.2mg/24 hours in AM on 01/03, consider trial of Depakote (decided during discussion with family). 01/04/17 Depakote 125mg PO BID 01/05/17 Continue current care 01/06/17 Continue current care 01/07/17: Cont current . Family meeting on Saturday01/09/17 01/09/17: Discontinue Namenda, Donepezil, and Rivastigmine. Family would like to place patient in facility with hospice care. 01/10/17: Cont current care. CM working on placement (2) New onset atrial fibrillation Assessment: Rate-controlled, outpatient echocardiogram recommended Cont. current psych. meds ONEIDA JAIMES MD Jan 10, 2017 18:33
[2017-01-10] MEDS: CLONAZEPAM 0.5 MG TABLET PO SCH (19:29)
[2017-01-10 19:30] VITALS: BP 106/79; PULSE 100; RESP 16; TEMP 97.3; O2SAT 94
--- NOTE | 2017-01-10 22:17 | NUR ---
Status Assumed patient care at 1900 and assessment completed at 1930. Patient is in dayroom recliner at time of assessment. Dozes with intermittent periods of slight restlessness (he keeps his eyes closed). Manipulates something unseen with his hands. Does not follow simple commands; speech is minimal and mumbled/garbled/nonsensical. Tremors are noted to left hand. VS are stable. Only mildly resistive to cares (stiff and does not assist/does not appear to comprehend instructions/explanations/reassurances) but patient is not aggressive. Cooperative with medications, crushed and placed in a small amount of mighty shake (eventually takes after multiple attempts). Refuses to take additional fluids/food when offered. Patient clears his throat frequently and spits randomly; does not redirect. Resting quietly in bed at the current time. Bed alarm is on and side rails are up x3.
--- NOTE | 2017-01-11 01:16 | NUR ---
Chart Check 24 hour chart check completed
[2017-01-11 01:30] VITALS: BP 120/48; PULSE 112; RESP 18; TEMP 98; O2SAT 95
[2017-01-11] MEDS: LORAZEPAM INTENSOL 1mg/0.5ml ORAL SOLUTION SL PRN ×3 (01:44→16:39)
--- NOTE | 2017-01-11 01:46 | NUR ---
Behaviors/PRN Patient incontinent just before 0100; resistive with cares - kicks, hits, and spits at staff. Remains restless following cares. Visual hallucinations are noted - points at empty spaces in the room and talks in an angry tone, as if to someone (speech is mumbled/garbled - when understood, it is nonsensical). He becomes increasingly restless/agitated and does not respond to redirection, distraction, or reassurances. Kicks/hits at staff when they are near. Repeatedly hits the bed rail with his hand, opening up the scab to his left, little finger - unable to bandage at the current time due to patient's agitation (only minimal amount of serous drainage is noted). Ativan 1 mg. intensol given SL. Water offered and patient crushes the cup then throws it at staff. Staff is currently present to ensure patient safety. Music is playing quietly in room.
--- NOTE | 2017-01-11 03:46 | NUR ---
PRN Follow-Up Patient gradually calms following prn Ativan - talks to self and fidgets, but no longer uses an angry tone or hits the bed rail. Falls asleep by 0245 and is sleeping at the current time. Bed alarm is on and side rails are up x3.
--- NOTE | 2017-01-11 06:06 | NUR ---
Summary Patient slept 8.5 hours this shift. TORSTEN to person only and with seemingly poor to no comprehension of staff questions, reassurances, or explanations. Mumbled/garbled speech - nonsensical when understood. Patient does not ambulate this shift; pivot transfer with x2 assist to/from w/c and patient bears weight but has a very stooped posture and does not walk. Cooperative with medications (crushed in only a small amount of mighty shake) after several attempts and refuses all other offered po intake. Spits frequently. Aggressive with cares last evening (hits, kicks, spits, and yells at staff). Ativan was effective in helping to calm patient. Patient is incontinent of urine and is unable to notify staff of needs. Distal finger left hand without noted active bleeding this morning. VS have remained stable. Visual/tactile hallucinations are noted frequently - manipulates something around/between his hands and fingers, picks at unseen things in the air and makes a motion as if to throw them, and appears to converse with/yell at/argue with unseen people. Patient is sleeping quietly at the current time; remains sleeping while checked for incontinence. Bed alarm is on and side rails are up x3.
[2017-01-11 08:00] VITALS: BP 115/91; PULSE 91; RESP 16; TEMP 97.2; O2SAT 94
[2017-01-11] MEDS: MULTIVITAMIN PLAIN TABLET PO SCH (09:00)
[2017-01-11] MEDS: RIVASTIGMINE PATCH REMOVAL TD SCH (09:00)
[2017-01-11] MEDS: FAMOTIDINE 20 MG TABLET PO SCH (09:00)
[2017-01-11] MEDS: POLYETHYL.GLYCOL 3350 PACKET 17gm PO SCH (09:00)
--- NOTE | 2017-01-11 09:30 | NUR ---
Status Pt was restless in bed, went in with another staff and helped get him out of bed. Pt resistent but not aggressive. Pt would not allow mouth care but allowed himself to be changed. Pt restless upon getting out of bed, unable to get him to eat any breakfast. Did get him to drink a few swallows of chocolate mighty shake with his depakote sprinkles in it. Did not take any of his other medications. Pt walked up and down hallway several times, for about 1.5 hours. Pt becoming increasingly tired, closing eyes when walking and becoming unsteady. Attempted to sit pt down a couple times; would sit for a few minutes then quickly get back up. Pt remains 2:1 at this time, will continue to monitor.
[2017-01-11] MEDS: DIVALPROEX SPRINKLE 125 MG CAPSULE PO SCH (09:35)
[2017-01-11] MEDS: RIVASTIGMINE 4.6 MG/24 HR PATCH TD SCH (09:38)
--- NOTE | 2017-01-11 10:38 | NUR ---
PRN Pt continues to be restless, closing his eyes when walking, trying to kick staff. Starting to curse much more, not redirectable with behaviors and not able to sit and rest. Given 1mg Ativan Intensol at this time due to increased agitation. Pt took medications, spit but didn't spit any of the medication out. Pt then remained 2:1; sitting in bathroom then walking around some more before finally sitting on his bed. He started to lie down, assisted into bed, alarm on with staff sitting by his side. Pt restless in bed but fatigued, eyes closed. Will continue to monitor.
--- NOTE | 2017-01-11 11:20 | NUR ---
CM CM SPOKE WITH FAMILY REGARDING PT STATUS AND DISCUSSED THE POSSIBILITY OF HAVING HOSPICE COME TO EVAL PATIENT FOR INPT STATUS. SPOUSE WOULD LIKE CM TO REACH OUT TO [facility] AND SEE IF PT MEETS CRITER[facility] FOR THEIR INPT UNIT. FAMILY IS AWARE THAT [facility] WILL ASSESS PT TODAY AT 2:15PM. FAMILY PLANS TO BE AT [facility] [place] FOR ASSESSMENT. FAMILY IS AWARE TO CONTACT CM IF NEEDS ARISE.
--- NOTE | 2017-01-11 11:38 | NUR ---
PRN assessment Pt's family arrived and sat with pt, pt woke but was less restless and less agitated; followed directions with no issues. Will continue to monitor.
--- NOTE | 2017-01-11 11:39 | NUR ---
RESIDENT BUYER Pt. was restless this morning pacing the halls with the assistance of two staff walking beside him. Pt. is only Ox1. Pt. demonstrates labile mood. Some of the time, he looks anxious and guarded. On one occasion he "joins" in a discussion with staff and smiles at a "joke" he made (much of what he said was incoherent, but he enjoyed the social interaction). He frequently walks in and out of the office mumbling to himself. He continues to experience visual hallucinations and paranoid delusions. He is also observed mumbling sternly to staff with scowl on his face.
--- NOTE | 2017-01-11 15:54 | NUR ---
CM CM VISITED WITH [facility] POST ASSESSMENT. THEY HAVE ACCEPTED PT FOR INPT AT [facility]. PT WILL BE TRANSPORTED BY [facility] AT 5:00PM TODAY. SPOUSE CON IS AWARE AND PRESENT AT [facility] [place] CON IS AWARE TO CONTACT CM IF NEEDS ARISE.
[2017-01-11] MEDS ORDERED: POLY17PO18 PO (15:59)
[2017-01-11] MEDS ORDERED: FAMO20TA8 PO (15:59)
--- NOTE | 2017-01-11 16:30 | NUR ---
Summary Pt has been restless, 2:1 most of the shift. Pt received ativan 1mg at 1038 which was effective in calming pt, he became less restless and less agitated. Pt did have hallucinations today, visual, auditory, and tactile noted. Pt had a couple episodes of pushing staff and attempting to kick staff; able to calm on his own for the most part; pt tends to get upset with debbie-cares and when he doesn't understand what is happening. Pt visited with family, didn't eat well today; bites, along with sips of water and mighty shake. Pt in bed at this time; dozing will continue to monitor.
--- NOTE | 2017-01-11 16:39 | NUR ---
PRN pt discharging via transport service, gave 1mg ativan intensol to help alleviate anxiety during transport.
--- NOTE | 2017-01-11 17:00 | NUR ---
Discharge pt discharged to [facility] in [place]. all personal belongings were returned to pt. pt is taken via cart with [facility] transport service. pt accompanied by his son, transport personnel and [facility] nurse.
[2017-01-13] MEDS ORDERED: MEMANTINE PO SCH (21:00)
[2017-01-13] MEDS ORDERED: DONEPEZIL PO SCH (21:00)
[2017-01-20] MEDS ORDERED: DONEPEZIL 10 MG TABLET PO SCH (21:00)
[2017-01-20] MEDS ORDERED: DONEPEZIL 5 MG TABLET PO SCH (21:00)
[2017-01-20] MEDS ORDERED: MEMANTINE 10 MG TABLET PO SCH (21:00)
[2017-01-20] MEDS ORDERED: MEMANTINE 5 MG TABLET PO SCH (21:00)
== END 2017-01-11 17:00 | disposition hospice, inpatient (51) | DRG 57 ==
LOC: GEN 18:00
PROVIDERS: ADMIT Psychiatry & Neurology Psychiatry; ATTEND Psychiatry & Neurology Psychiatry
DX: G30.9 Alzheimer's disease, unspecified (principal); F02.81 Dementia in other diseases classified elsewhere, unspecified severity, with behavioral disturbance; I48.91 Unspecified atrial fibrillation; I95.9 Hypotension, unspecified; R63.0 Anorexia; Z68.23 Body mass index [BMI] 23.0-23.9, adult; Z66 Do not resuscitate
CPT/HCPCS: 36415; 80048; 80061; 82607; 82746; 83036; 93005